=== PATIENT | female | born 1960 | race Caucasian/White ===

== ENCOUNTER → 2018-05-03 14:16 | Outpatient (CLI) | payer BC, SELFPAY ==
[2018-05-14 09:04] LABS: HPV HC, High Risk Negative (Negative)
[2018-05-14 09:19] LABS: HPV Reflexed? YES, CHARGE PATIENT
== END ==
PROVIDERS: Visit Provider Obstetrics & Gynecology
DX: Z12.4 Encounter for screening for malignant neoplasm of cervix (principal)
CPT/HCPCS: 87624; 88175; G0145

== ENCOUNTER 2021-06-28 13:29 | Emergency (ER) | payer OTHER, SELFPAY ==
[2021-06-28 13:29] VITALS: BP 168/119; PULSE 128; RESP 24; TEMP 38.2; O2SAT 94; BMI 26.3
--- NOTE | 2021-06-28 13:31 | RAD_ITS ---
STUDY: X-RAY CHEST REASON FOR EXAM: Female, 61 years old. FEVER / COUGH TECHNIQUE: Frontal view of the chest COMPARISON: None. FINDINGS: The lungs are clear and expanded. There is no demonstrated pleural abnormality. Normal size heart. Normal mediastinum and filippo. Normal visualized pulmonary arteries. Normal visualized aortic arch and descending thoracic aorta. Normal visualized thoracic spine. Normal visualized ribs, clavicles, and shoulders. There is no demonstrated abnormality of the visualized soft tissue structures of the upper abdomen. RAD/Chest 1 View IMPRESSION: Normal x-ray examination of the chest. Electronically Signed: Michael Villa MD at 14:38 EDT Tel , Service support ,
[2021-06-28 16:25] VITALS: O2SAT 96
[2021-06-28] MEDS: Acetaminophen 325 MG Tablet 650 MG PO (16:25)
[2021-06-28 16:31] VITALS: BP 177/98; PULSE 110; RESP 18; TEMP 39.1; O2SAT 96
[2021-06-28 16:40] LABS: Absolute Lymphocyte Count 0.51 X10^3/uL (0.83-4.51); Hematocrit 42.1 % (37-47); Hemoglobin 14.4 g/dL (12.0-15.0); Lymphocyte # 0.51 X10^3/ul (0.83-4.51); Lymphocyte % 19.8 % (19-41); Mean Corp Hgb Conc 34.2 g/dL (32-36); Mean Corpuscular Hgb 34.4 pg (27.0-32.0); Mean Corpuscular Volume 100.7 fL (81-99); Mean Platelet Vol. 9.3 fl (6.2-12.0); Monocyte# 0.11 X10^3/uL; Monocyte% 4.3 % (0-10); NRBC Flagged by Analyzer 0 % (0-5); Neutrophil # 1.96 X10^3/uL (2.7-7.7); Neutrophil % 75.9 % (47-70); POSITIVE DIFFERENTIAL YES; Platelet Count 103 K/mm3 (150-450); RBC Distribution Width CV 12.8 % (11.6-14.6); RBC Distribution Width SD 47.9 fl (35.1-43.9); Red Blood Count 4.18 M/mm3 (4.2-5.4); White Blood Count 2.6 K/mm3 (4.4-11.0)
[2021-06-28 16:41] LABS: Differential Indicated SCAN CRITERIA MET
[2021-06-28 16:54] LABS: ALB/GLOB Ratio 0.9 RATIO (0.9-2.4); AST(SGOT) 17 U/L (15-37); Alanine Aminotransfer ALT/SGPT 21 U/L (13-56); Albumin, Serum 3.5 g/dL (3.2-5.0); Alkaline Phosphatase 75 U/L (45-117); Anion Gap 8 (5-15); BUN 10 mg/dL (7-18); BUN/Creat Ratio 11.7 RATIO (10-20); Calcium,Total 8.7 mg/dL (8.5-10.1); Chloride 99 mmol/L (98-107); Creatinine, Serum 0.85 mg/dL (0.55-1.02); EST Glomerular Filtration Rate 72 mL/min (>60); Est Glom Filt Rate - Afr Amer 87 mL/min (>60); Estimated Creatinine Clearance 65.89 ml/min; Globulin 3.9 g/dL (2.2-4.2); Glucose 113 mg/dL (74-106); Potassium 3.7 mmol/L (3.5-5.1); Protein, Total 7.4 g/dL (6.4-8.2); Sodium Level 134 mmol/L (136-145)
[2021-06-28 17:02] LABS: Differential Comment SCANNED
[2021-06-28 17:15] LABS: Lactic Acid 0.9 mmol/L (0.4-1.9)
--- NOTE | 2021-06-28 18:06 | EX.ED.DYSGE1 ---
HPI History of Present Illness Chief Complaint: Fever Detail of Chief Complaint: Fever, aches, viral-like symptoms Informant: patient Onset/Context/Timing Onset: Days Context: Sudden Onset Timing: Continuous Quality: T-max of 103.0 ?F Current Severity: Mild Maximum Severity: Moderate Worsened by: Dyspnea on exertion Relieved by: Nothing Associated Symptoms Associated Symptoms: Fever, nonproductive cough, nausea Narrative Narrative: Patient is a 61-year-old woman who presents with viral-like symptoms. She was exposed to someone with Covid. She complains of headache, mild photophobia denies neck pain or neck stiffness. Does report nasal congestion, rhinorrhea. Denies sore throat. Denies loss of taste or smell. She has a nonproductive cough. She complains of dyspnea. She denies leg pain, swelling discoloration. Denies history of PE or DVT. She has no risk factors other than Covid. She denies dysuria, frequency, urgency or hematuria. She had intermittent rash on her right and left anterior thigh. Prior similar symptoms: No Recent Illness/Hospitalization: No PFSH PFS Medical History Hairy cell leukemia Home Medications zolpidem [Ambien] 5 mg PO QHS PRN 3 Days #3 tab 06/28/21 [Rx Last Taken Unknown] Allergy/AdvReac Type Severity Reaction Status Date / Time No Known Allergies Allergy Verified 06/28/21 13:31 Social History (Updated 06/28/21 @ 18:[address] Roshan Beltran MD) household members: none Smoking Status: Never smoker alcohol intake: current alcohol intake frequency: other substance use type: does not use ROS ROS ED Constitutional Constitutional ED: Reports chills, fever(s) and sweats; Denies subjective or weight loss Eyes Eyes: Reports other Details: Photophobia ; Denies blurry vision, change in vision or diplopia ENT ENT ED: Reports rhinorrhea; Denies ear pain or sore throat Cardiovascular Cardiovascular: Denies chest pain or palpitations Respiratory/Chest Respiratory/Chest: Reports cough and dyspnea; Denies sputum Gastrointestinal Gastrointestinal: Reports nausea; Denies abdominal pain, constipation, diarrhea or vomiting Genitourinary Genitourinary ED: Denies dysuria, hematuria or urinary frequency Musculoskeletal Musculoskeletal: Reports arthralgias and myalgias; Denies back pain or neck pain Integumentary Reports rash; Denies Abrasions Neurologic Neurologic: Reports headache(s); Denies paresthesias or weakness Endocrine Endocrinology: Denies polydipsia, polyphagia or polyuria Allergic/Immunologic Allergic/Immunologic ED: Denies urticaria EXAM Physical Exam Const Vital Signs: 06/28/21 13:29 06/28/21 16:25 06/28/21 16:31 Temperature 100.7 F H 102.3 F H Temperature Source Oral Temporal Pulse Rate 128 H 110 H Respiratory Rate 24 H 18 Respiratory Effort Respiratory Pattern Blood Pressure 168/119 H 177/98 H Blood Pressure Mean 135 124 Pulse Ox 94 96 96 Oxygen Delivery Method Room Air Room Air Room Air 06/28/21 16:36 Temperature Temperature Source Pulse Rate Respiratory Rate Respiratory Effort Normal Non-Labored Respiratory Pattern Normal Blood Pressure Blood Pressure Mean Pulse Ox Oxygen Delivery Method Positive well nourished and well developed General Appearance ED: well developed and NAD; Negative for cyanotic or diaphoretic HEENT Reports TM's clear and dry mucous membranes HEENT Narrative: Head is atraumatic normocephalic. Nares patent. Posterior pharynx out erythema or exudate. Tympanic Membrane ED: Yes TM's clear Mouth ED: Yes dry mucous membranes Mouth: dry mucous membranes Eyes PERRL and EOMs intact bilaterally General Eye ED: Negative for pale conjunctiva or scleral icterus Neck no lymphadenopathy, supple and no JVD General: Negative for tenderness Chest Wall inspection of chest normal Resp normal respiratory effort and clear to auscultation bilaterally Cardio regular rhythm, S1 normal heart sound, S2 normal heart sound and no murmurs Rate: tachycardic GI normal to inspection, nondistended, normoactive bowel sounds, non-tender and non-distended Palpation: soft Back/Spine no CVA tenderness Cervical Spine: Negative for cervical spine tenderness Thoracic Spine / Upper Back: Negative for paraspinal muscle tenderness Extremity normal to inspection General Extremety ED: Negative for edema or tenderness General Extremity: Negative for edema Neuro oriented x3, CN's II-XII intact bilaterally and no sensory deficits noted Sensorium / Orientation: alert Motor Exam: strength 5/5 throughout Psych mental status grossly normal Skin no rashes or lesions noted, no wounds and skin turgor normal MDM MDM MDM Narrative Medical decision making narrative: Patient with persistent fever. Symptoms are consistent with Covid. Chest x-ray, appropriate blood work and Covid test was obtained. This represents a viral illness versus Covid versus bacterial pneumonia. Patient is neutropenic consistent with Covid. Covid test is positive. Comprehensive metabolic panel is marked for slight elevation of glucose, 113. Lactate normal. Chest x-ray normal. Patient did receive IV fluids. Lab Data Labs: Laboratory Results - last 24 hr 06/28/21 06/28/21 06/28/21 16:31 16:31 16:31 WBC 2.6 L RBC 4.18 L Hgb 14.4 Hct 42.1 MCV 100.7 H MCH 34.4 H MCHC 34.2 RDW Std Deviation 47.9 H RDW Coeff of [place] 12.8 Plt Count 103 L MPV 9.3 Immature Gran % (Auto) 0.000 Neut % (Auto) 75.9 H Lymph % (Auto) 19.8 [place] % (Auto) 4.3 Eos % (Auto) 0.0 Baso % (Auto) 0.0 Absolute Neuts (auto) 2.0 Absolute Lymphs (auto) 0.51 L Nucleated RBC % 0 Differential Comment SCANNED Diff Path Review May foll Sodium 134 L Potassium 3.7 Chloride 99 Carbon Dioxide 27.0 Anion Gap 8 BUN 10 Creatinine 0.85 Estim Creat Clear Calc 65.89 Est GFR (MDRD) Af Amer 87 Est GFR (MDRD) Non-Af 72 BUN/Creatinine Ratio 11.7 Glucose 113 H Lactic Acid 0.9 Calcium 8.7 Total Bilirubin 0.90 AST 17 ALT 21 Alkaline Phosphatase 75 Total Protein 7.4 Albumin 3.5 Globulin 3.9 Albumin/Globulin Ratio 0.9 Radiography Chest X-Ray - ED: 1 View, Read by ED Physician, Unchanged, Normal, Heart, Mediastinum, Bony Structures, No Acute Disease and Chronic Changes Diagnostic Testing: Clinical Impression(s) from Imaging Studies Chest X-Ray 06/28/21 13:31 IMPRESSION: Normal x-ray examination of the chest. Electronically Signed: Michael Villa MD at 14:38 EDT Tel , Service support , Discharge Plan Triage Chief Complaint: Fever ED Provider: Roshan Beltran Dx/Rx/DC Orders Clinical Impression: COVID-19 virus infection, Sinus tachycardia, Fever and neutropenia Instructions: Coronavirus Disease 2019 (COVID-19): Caring for Yourself or Others Prescriptions: New zolpidem [Ambien] 5 mg tablet 5 mg PO QHS PRN (Reason: insomnia) 3 Days Qty: 3 RF: 0 Primary Care Provider: Care Physician,No Primary Referrals: John Goodwin MD [STAFF PHYSICIAN] - 10-14 Days if not better Care Physician,No Primary [Primary Care Provider] - Activity Restrictions/Additional Instructions: Take 4 ibuprofen tablets every 8 hours for the next 2 to 3 days for your fever. Disposition Disposition: Home, Self Care
[2021-06-28 18:34] VITALS: BP 147/91; PULSE 72; RESP 20; TEMP 37.2; O2SAT 98
[2021-06-30 13:36] LABS: Pathologist Review Reviewed
== END 2021-06-28 18:49 | disposition home or self-care (01) ==
PROVIDERS: Emergency Provider Emergency Medicine
DX: U07.1 COVID-19 (principal)
CPT/HCPCS: 71045; 80053; 83605; 85025; 87426; 93005; 94760; 99283; A4216

== ENCOUNTER 2021-07-02 17:38 | Emergency (ER) | payer OTHER, SELFPAY ==
[2021-07-02 17:38] VITALS: BP 143/85; PULSE 120; RESP 18; TEMP 39; O2SAT 93; BMI 25.2
--- NOTE | 2021-07-02 17:58 | EDS_ITS ---
HPI History of Present Illness Chief Complaint: Fever Narrative Narrative: 61-year-old female diagnosed with COVID-19 on Wednesday with symptoms since presenting for fevers which do resolve with Tylenol and ibuprofen and then seemed to come back. She is not complaining of chest pain or shortness of breath. She is stating that she is generally weak. She has decreased p.o. intake because she is not hungry. She is able to hold down some food and fluids. She is making urine. Her highest fever at home is been 102. She states that distantly she was treated for hairy cell leukemia but has not followed up for this. When she was diagnosed with COVID-19 she did not qualify for monoclonal antibodies. She did not want these because she is against the science of it. She also states that she would not take remdesivir or any other treatment for COVID-19. She states that she would prefer to be on ivermectin because she has done research on this. Patient does complain of some mild nausea. She has not been vomiting. Patient does report her pulse oximeter has gone from 97-93 at home on room air. PFSH PFSH Medical History Hairy cell leukemia Hypertension Non-smoker Home Medications zolpidem [Ambien] 5 mg PO QHS PRN 3 Days #3 tab 06/28/21 [Rx Last Taken Unknown] zolpidem [Ambien] 5 mg PO QHS PRN 3 Days #3 tab 06/28/21 [Rx Last Taken Unknown] ondansetron 4 mg PO Q8H PRN PRN #14 tab 07/02/21 [Rx Last Taken Unknown] Allergy/AdvReac Type Severity Reaction Status Date / Time No Known Allergies Allergy Verified 07/02/21 17:42 Social History household members: none Smoking Status: Never smoker alcohol intake: current alcohol intake frequency: other substance use type: does not use ROS ROS ED Constitutional Constitutional ED: Reports chills and fever(s); Denies weight loss Eyes Eyes: Denies blurry vision or change in vision ENT ENT ED: Denies rhinorrhea or sore throat Cardiovascular Cardiovascular: Denies chest pain or palpitations Respiratory/Chest Respiratory/Chest: Reports cough; Denies dyspnea or dyspnea on exertion Gastrointestinal Gastrointestinal: Reports nausea; Denies abdominal pain, diarrhea or vomiting Genitourinary Genitourinary ED: Denies dysuria or hematuria Musculoskeletal Musculoskeletal: Reports myalgias; Denies arthralgias, back pain or neck pain Integumentary Denies Abrasions or rash Neurologic Neurologic: Reports headache(s); Denies paresthesias or weakness EXAM Physical Exam Const Vital Signs: 07/02/21 17:38 07/02/21 19:33 07/02/21 19:56 Temperature 102.2 F H 102.3 F H Temperature Source Temporal Oral Pulse Rate 120 H 99 103 H Respiratory Rate 18 23 H 23 H Respiratory Effort Normal Non-Labored Blood Pressure 143/85 H 143/86 H 148/79 H Blood Pressure Mean 104 105 102 Pulse Ox 93 95 93 Oxygen Delivery Method Room Air Room Air Room Air 07/02/21 20:20 Temperature 99.8 F H Temperature Source Oral Pulse Rate 84 Respiratory Rate 22 H Respiratory Effort Blood Pressure 121/74 H Blood Pressure Mean 89 Pulse Ox 94 Oxygen Delivery Method Room Air Positive well nourished General Appearance ED: NAD; Negative for pallor HEENT Reports moist mucous membranes Negative for trauma Eyes PERRL and EOMs intact bilaterally Neck no lymphadenopathy and supple Resp normal respiratory effort and clear to auscultation bilaterally Cardio regular rhythm Rate: tachycardic GI normal to inspection, nondistended, normoactive bowel sounds Neuro oriented x3 and CN's II-XII intact bilaterally Sensorium / Orientation: alert Psych mental status grossly normal Skin General Skin Exam: Negative for jaundice or pallor MDM MDM MDM Narrative Medical decision making narrative: Patient presenting for reevaluation secondary to symptoms of COVID-19. She is ambulatory and does not appear to be dyspneic. Her pulse ox at rest is 93%. She dropped down to 90 when ambulating and therefore does not qualify for home O2. She was given Toradol and Zofran and her fever has broken. Currently her pulse ox is 94% at rest without oxygen. She is still leukopenic and lymphopenic. Her hemoglobin hematocrit are stable. Potassium is slightly low at 3.2. Her creatinine is normal. LFTs are normal. Troponin negative at 5. EKG on my interpretation shows a normal sinus rhythm with a ventricular rate of 95 bpm without sign of ischemic change. Chest x-ray on my interpretation bilateral infiltrates which is new from previous chest x- ray. The radiologist does agree. Urinalysis shows some urine ketones but does not show any evidence of infection. Patient was counseled on all findings. Patient did state that she wanted to be on ivermectin and I counseled her that I do not prescribe ivermectin for Covid. She was offered monoclonal antibodies but states she does not believe in the science. She stated that she wanted to be admitted for observation but refuses to have received any remdesivir. She does not require steroids because she is not hypoxic and she does not require oxygen for the same reason. Patient and her daughter were counseled that if her pulse ox did drop below 88 and she needed reevaluation to return to the emergency room. I will I will prescribe her Zofran so that she can eat without nausea. She is counseled to hydrate well. Patient discharged in stable condition. Impression: 1. COVID-19 pneumonitis 2. Generalized weakness Lab Data Attestation: I reviewed the patient's lab results. Labs: Laboratory Results - last 24 hr 07/02/21 07/02/21 07/02/21 19:05 19:05 19:53 WBC 2.2 L RBC 3.77 L Hgb 12.8 Hct 37.1 MCV 98.4 MCH 34.0 H MCHC 34.5 RDW Std Deviation 45.3 H RDW Coeff of [place] 12.4 Plt Count 109 L MPV 9.0 Immature Gran % (Auto) 0.900 Neut % (Auto) 85.0 H Lymph % (Auto) 13.2 L [place] % (Auto) 0.9 Eos % (Auto) 0.0 Baso % (Auto) 0.0 Absolute Neuts (auto) 1.9 L Absolute Lymphs (auto) 0.29 L Nucleated RBC % 0 Differential Comment Diff Path Review May foll Platelet Estimate SLT DEC RBC Morphology NORM C+C Sodium 132 L Potassium 3.2 L Chloride 96 L Carbon Dioxide 29.0 Anion Gap 7 BUN 11 Creatinine 0.70 Estim Creat Clear Calc 83.11 Est GFR (MDRD) Af Amer 109 Est GFR (MDRD) Non-Af 90 BUN/Creatinine Ratio 15.6 Glucose 115 H Calcium 8.8 Total Bilirubin 0.70 AST 30 ALT 23 Alkaline Phosphatase 67 Troponin I High Sens 5 Total Protein 7.3 Albumin 2.9 L Globulin 4.4 H Albumin/Globulin Ratio 0.7 L Urine Color Yellow Urine Clarity Clear Urine pH 6.5 Ur Specific [place] 1.015 Urine Protein 100 H Urine Glucose (UA) Normal Urine Ketones 150 A* Urine Occult Blood 10 H Urine Nitrite Negative Urine Bilirubin Negative Urine Urobilinogen 4 H Ur Leukocyte Esterase Negative Urine RBC 0-5 SEEN Urine WBC 0-5 SEEN Ur Squamous Epith Cells 0-5 SEEN Urine Bacteria 1+ Urine Mucus 2+ Radiography Diagnostic Testing: Clinical Impression(s) from Imaging Studies Chest X-Ray 07/02/21 18:24 IMPRESSION: Interval development of hazy bilateral airspace disease consistent with pneumonia including atypical or viral pneumonia. at 2004 Reported and signed by: Marcio Shah MD Electronically Signed: Marcio Shah MD at 20:03 EDT Tel , Service support , Discharge Plan Triage Chief Complaint: Fever ED Provider: Danilo Short Dx/Rx/DC Orders Instructions: Coronavirus Disease 2019 (COVID-19): Caring for Yourself or Others Prescriptions: New ondansetron 4 mg tablet,disintegrating 4 mg PO Q8H PRN PRN (Reason: Nausea) Qty: 14 RF: 0 No Action zolpidem [Ambien] 5 mg tablet 5 mg PO QHS PRN (Reason: insomnia) 3 Days Qty: 3 RF: 0 zolpidem [Ambien] 5 mg tablet 5 mg PO QHS PRN (Reason: insomnia) 3 Days Qty: 3 RF: 0 Primary Care Provider: John Goodwin Referrals: John Goodwin MD [Primary Care Provider] - Disposition Disposition: Home, Self Care
--- NOTE | 2021-07-02 18:24 | EKG12_ITS ---
Test Reason : FEVER Blood Pressure : / mmHG Vent. Rate : 095 BPM Atrial Rate : 095 BPM P-R Int : 134 ms QRS Dur : 086 ms QT Int : 350 ms P-R-T Axes : 047 025 031 degrees QTc Int : 439 ms Normal sinus rhythm Normal ECG Confirmed by SANDRA HUNG, CORWIN ([id number]), tape editor CYNDEE OSULLIVAN ([id number]) on 07/04/2021 9:33:22 AM Referred By: DESIRAE Confirmed By:CORWIN FLORES MD
--- NOTE | 2021-07-02 18:24 | RAD_ITS ---
HISTORY: cough EXAMINATION/TECHNIQUE: XR Chest 1 View: Portable upright AP chest x-ray COMPARISON: 06/28/21 FINDINGS: LINES/DEVICES: None. LUNGS: Hazy bilateral peripheral airspace opacities without consolidation or pleural effusion. MEDIASTINUM AND CARDIOVASCULAR STRUCTURES: Cardiac silhouette not enlarged. Central airways and mediastinal contour are unremarkable. BONES AND SOFT TISSUES: No acute bony abnormalities. RAD/Chest 1 View (Portable) IMPRESSION: Interval development of hazy bilateral airspace disease consistent with pneumonia including atypical or viral pneumonia. at 2004 Reported and signed by: Marcio Shah MD Electronically Signed: Marcio Shah MD at 20:03 EDT Tel , Service support ,
[2021-07-02 19:13] LABS: Absolute Lymphocyte Count 0.29 X10^3/uL (0.83-4.51); Absolute Neutrophil Count 1.9 X10^3/uL (2.0-7.7); Hematocrit 37.1 % (37-47); Hemoglobin 12.8 g/dL (12.0-15.0); Lymphocyte # 0.29 X10^3/ul (0.83-4.51); Lymphocyte % 13.2 % (19-41); Mean Corp Hgb Conc 34.5 g/dL (32-36); Mean Corpuscular Volume 98.4 fL (81-99); Monocyte# 0.02 X10^3/uL; Monocyte% 0.9 % (0-10); NRBC Flagged by Analyzer 0 % (0-5); Neutrophil # 1.86 X10^3/uL (2.7-7.7); POSITIVE DIFFERENTIAL YES; POSITIVE MORPHOLOGY YES; Platelet Count 109 K/mm3 (150-450); RBC Distribution Width CV 12.4 % (11.6-14.6); RBC Distribution Width SD 45.3 fl (35.1-43.9); Red Blood Count 3.77 M/mm3 (4.2-5.4); White Blood Count 2.2 K/mm3 (4.4-11.0)
[2021-07-02 19:16] LABS: Differential Indicated SCAN CRITERIA MET
[2021-07-02] MEDS: Ondansetron 4 MG/2 ML Vial IV (19:24)
[2021-07-02] MEDS: Ketorolac 15 MG/ML Vial IV (19:26)
[2021-07-02 19:33] VITALS: BP 143/86; PULSE 99; RESP 23; TEMP 39.1; O2SAT 95
[2021-07-02 19:35] LABS: ALB/GLOB Ratio 0.7 RATIO (0.9-2.4); AST(SGOT) 30 U/L (15-37); Alanine Aminotransfer ALT/SGPT 23 U/L (13-56); Albumin, Serum 2.9 g/dL (3.2-5.0); Alkaline Phosphatase 67 U/L (45-117); Anion Gap 7 (5-15); BUN 11 mg/dL (7-18); BUN/Creat Ratio 15.6 RATIO (10-20); Calcium,Total 8.8 mg/dL (8.5-10.1); Chloride 96 mmol/L (98-107); EST Glomerular Filtration Rate 90 mL/min (>60); Est Glom Filt Rate - Afr Amer 109 mL/min (>60); Estimated Creatinine Clearance 83.11 ml/min; Globulin 4.4 g/dL (2.2-4.2); Glucose 115 mg/dL (74-106); Potassium 3.2 mmol/L (3.5-5.1); Protein, Total 7.3 g/dL (6.4-8.2); Sodium Level 132 mmol/L (136-145); Troponin-I HS 5 pg/mL (3.0-54.0)
[2021-07-02 19:56] VITALS: BP 148/79; PULSE 103; RESP 23; O2SAT 93
[2021-07-02 20:00] LABS: Platelet Estimate SLT DEC (ADEQ); Red Cell Morphology NORM C+C NORMAL (NORM C&C)
--- NOTE | 2021-07-02 20:13 | ED.RN ---
dr hu notified pt triggers sepsis alert
[2021-07-02 20:20] VITALS: BP 121/74; PULSE 84; RESP 22; TEMP 37.7; O2SAT 94
[2021-07-02 21:03] LABS: Color, Urine Yellow (Yellow); Glucose, Dipstick Normal (Normal); Leukocyte Esterase-Dipstick Negative /ul (Negative); Nitrite-Dipstick Negative (Negative); Occult Blood-Urine 10 /ul (Negative); Protein-Dipstick 100 mg/dl (Negative); Specific Gravity, Urine 1.015 (1.002-1.030); Urine Bilirubin Dipstick Negative (Negative); Urine Clarity Clear (Clear); Urine Urobilinogen 4 mg/dl (Normal); Urine pH 6.5 (5.0 - 8.0)
[2021-07-02 21:04] LABS: Ketone-Dipstick 150 mg/dl (Negative)
[2021-07-02 21:05] LABS: Red Blood Cells-Urine 0-5 SEEN /hpf (0-5); Squamous Epithelial Cells - UA 0-5 SEEN /hpf (5-10); White Blood Cells 0-5 SEEN /hpf (0-5)
[2021-07-02 21:06] LABS: Bacteria 1+ /hpf (None Seen); Mucous, Urine 2+ /hpf (<or=2+)
[2021-07-02 22:06] VITALS: BP 121/74; PULSE 71; TEMP -5.5; TEMP 22; O2SAT 94
--- NOTE | 2021-07-02 22:09 | ED.RN ---
THIS NURSE REVIEWED D/C INSTRUCTIONS WITH PT AND DAUGHTER. BOTH VERBALIZED UNDERSTANDING OF INSTRUCTIONS. IV D/C. IV CATHETER INTACT. PT TOLERATED WELL. PT EXPRESSED BEING UPSET WITH DR TYLER. I SPOKE WITH THE PT AND DAUGHTER FOR AN EXTENDED AMOUNT OF TIME. BOTH VERBALIZED UNDERSTANDING OF SUGGESTIONS. PT DENIES FURTHER NEEDS OR QUESTIONS AT THIS TIME. PT AMBULATES FROM ROOM ON OWN WITHOUT ASSISTANCE FROM STAFF
[2021-07-03 13:21] LABS: Pathologist Review Reviewed
== END 2021-07-02 22:19 | disposition home or self-care (01) ==
PROVIDERS: Emergency Provider Student in an Organized Health Care Education/Training Program; PCP Family Medicine
DX: U07.1 COVID-19 (principal); J12.82 Pneumonia due to coronavirus disease 2019
CPT/HCPCS: 36415; 71045; 80053; 81001; 84484; 85025; 87040; 93005; 96374; 96375; 99283; A4216; J2405

== ENCOUNTER 2021-07-07 07:25 | Emergency (ER) | payer OTHER, SELFPAY ==
[2021-07-07 07:25] VITALS: BP 134/84; PULSE 121; RESP 18; TEMP 37.5; O2SAT 88; BMI 25.0
[2021-07-07 07:36] VITALS: O2SAT 87
--- NOTE | 2021-07-07 07:46 | EKG12_ITS ---
Test Reason : GENERAL ILLNESS Blood Pressure : / mmHG Vent. Rate : 095 BPM Atrial Rate : 095 BPM P-R Int : 138 ms QRS Dur : 080 ms QT Int : 352 ms P-R-T Axes : 042 025 041 degrees QTc Int : 442 ms Normal sinus rhythm Normal ECG Confirmed by SANDRA HUNG, CORWIN ([id number]), managing editor CYNDEE OSULLIVAN ([id number]) on 07/09/2021 8:21:48 AM Referred By: JEROME Confirmed By:CORWIN FLORES MD
--- NOTE | 2021-07-07 07:47 | EX.ED.DYSGE1 ---
HPI History of Present Illness Chief Complaint: General Illness Detail of Chief Complaint: Shortness of breath Informant: patient Onset/Context/Timing Onset: Days Context: Gradual Onset Timing: Continuous Current Severity: Mild Maximum Severity: Mild Narrative Narrative: 61-year-old female history of hairy cell leukemia, hypertension and tested positive for Covid 1021. She is unvaccinated. States that she has been seen twice already. Over the last 2 days she has developed shortness of breath. Also this morning when she woke up she believes she is having vaginal bleeding. Patient has not been on Decadron nor has she received monoclonal antibodies and now is outside the window for that. Prior similar symptoms: Yes Recent Illness/Hospitalization: No PFSH PFSH Medical History Hairy cell leukemia Hypertension Non-smoker Home Medications zolpidem [Ambien] 5 mg PO QHS PRN 3 Days #3 tab 06/28/21 [Rx Last Taken Unknown] zolpidem [Ambien] 5 mg PO QHS PRN 3 Days #3 tab 06/28/21 [Rx Last Taken Unknown] ondansetron 4 mg PO Q8H PRN PRN #14 tab 07/02/21 [Rx Last Taken Unknown] dexamethasone [Decadron] 6 mg PO DAILY 10 Days #10 tab 07/07/21 [Rx Last Taken Unknown] Allergy/AdvReac Type Severity Reaction Status Date / Time No Known Allergies Allergy Verified 07/07/21 07:25 Social History household members: none Smoking Status: Never smoker alcohol intake: current alcohol intake frequency: other substance use type: does not use ROS ROS ED ROS Narrative Fever. Shortness of breath. Muscle aches. Review of Systems ROS Unobtainable: Denies due to encephalopathy Constitutional Constitutional ED: Reports fever(s) Eyes Eyes: Denies change in vision ENT ENT ED: Denies ear pain or sore throat Cardiovascular Cardiovascular: Reports chest pain Respiratory/Chest Respiratory/Chest: Reports cough and dyspnea Gastrointestinal Gastrointestinal: Reports nausea and vomiting; Denies abdominal pain Genitourinary Genitourinary ED: Denies dysuria Musculoskeletal Musculoskeletal: Reports myalgias Integumentary Denies rash Neurologic Neurologic: Denies headache(s) Psychiatric Psychiatric: Denies depression Endocrine Endocrinology: Denies polyuria Allergic/Immunologic Allergic/Immunologic ED: Denies urticaria EXAM Physical Exam Narrative Exam Narrative: 61-year-old female vital signs stable except pulse ox is 88% on room air she was placed on oxygen. Heart rate is 121. H EENT exam unremarkable. Neck nontender no JVD. Lungs auscultation bilaterally. Heart tachycardic 120 no murmur. Abdomen soft nondistended normal bowel sounds no peritoneal signs. Patient moving all 4 extremities. Calves are nontender without edema or cords. Neurologically she is awake and alert with no focal motor deficits. Const Vital Signs: 07/07/21 07:25 07/07/21 07:54 07/07/21 10:37 Temperature 99.5 F H Temperature Source Temporal Pulse Rate 121 H 95 Respiratory Rate 18 17 Respiratory Effort Normal Respiratory Pattern Normal Blood Pressure 134/84 H 150/90 H Blood Pressure Mean 100 110 Pulse Ox 88 97 Oxygen Delivery Method Room Air Nasal Cannula Oxygen Flow Rate (L/min) 2 Positive well nourished and well developed; Negative for obese, cachectic, contractures or unkempt General Appearance ED: well developed and NAD; Negative for unkempt, cachectic, contractures, cyanotic, diaphoretic or pallor Nutritional Appearance: Negative for cachectic or obese HEENT Reports moist mucous membranes Negative for trauma or tenderness Eyes PERRL and EOMs intact bilaterally Neck no lymphadenopathy, supple and no JVD General: Negative for tenderness Chest Wall inspection of chest normal and palpation of chest normal Resp normal respiratory effort and clear to auscultation bilaterally Effort and Inspection: Negative for pain with movement Auscultation: Negative for rales, rhonchi or wheezes Cardio regular rhythm, S1 normal heart sound, S2 normal heart sound and no murmurs; Negative for regular rate Rate: tachycardic GI normal to inspection, nondistended, normoactive bowel sounds, non-tender and non-distended Auscultation: normoactive bowel sounds Palpation: soft Narrative: Pelvic exam done female nurse present in the room along with the patient's . External exam unremarkable. Speculum exam small amount of red and dark blood in the vaginal vault. No significant clots. No heavy bleeding. No obvious abnormality seen on visualization. On bimanual exam no obvious mass is. No discharge. Back/Spine no CVA tenderness General Back: Negative for CVA tenderness Cervical Spine: Negative for cervical spine tenderness Extremity normal to inspection General Extremety ED: Negative for edema or tenderness General Extremity: Negative for edema Neuro oriented x3 and CN's II-XII intact bilaterally Sensorium / Orientation: alert; Negative for orientation impaired, lethargic or stuporous Motor Exam: strength 5/5 throughout Psych mental status grossly normal Appearance: Negative for unkempt Mood & Affect: Negative for depressed or tearful Skin no rashes or lesions noted, no wounds and No skin turgor normal General Skin Exam: Negative for elasticity normal, jaundice or pallor MDM MDM MDM Narrative Medical decision making narrative: 61-year-old female Covid positive now hypoxic. That will be worked up. She is also having vaginal bleeding. Blood count and pelvic exam will need to be obtained. Discussed with the patient at length about being admitted for further treatment of her Covid. She does not want any treatment options other than she will do Decadron at home. She is outside the window for monoclonal antibody therapy. She is also now hypoxic and would be a candidate. flume worker setting her up for home O2. She also knows that she is becoming anemic she is lost about 3 units of blood in the last 11 days. She is due to follow-up with her TRANSPLANT REGISTERED NURSE. She will need further evaluation of pelvic ultrasound for the vaginal bleeding. She will be placed on Decadron at home. Home O2 and outpatient follow-up. Lab Data Attestation: I reviewed the patient's lab results. Lab results narrative: CBC shows a white count of 1.7. Hemoglobin 11.5. Platelets 133. Electrolytes sodium 132. Potassium 3.1. Gap is 9. Creatinine 0.5. Lactic acid 1.1. Labs: Laboratory Results - last 24 hr 07/07/21 07/07/21 07/07/21 07:47 07:47 07:47 WBC 1.7 L RBC 3.33 L Hgb 11.5 L Hct 32.8 L MCV 98.5 MCH 34.5 H MCHC 35.1 RDW Std Deviation 45.9 H RDW Coeff of Irving 12.7 Plt Count 133 L MPV 9.6 Immature Gran % (Auto) 0.600 Neut % (Auto) 83.8 H Lymph % (Auto) 13.8 L Pitt % (Auto) 1.2 Eos % (Auto) 0.6 Baso % (Auto) 0.0 Absolute Neuts (auto) 1.4 L Absolute Lymphs (auto) 0.23 L Nucleated RBC % 0 Differential Comment Diff Path Review May foll Platelet Estimate SLT DEC RBC Morphology NORM C+C Sodium 132 L Potassium 3.1 L Chloride 96 L Carbon Dioxide 27.0 Anion Gap 9 BUN 11 Creatinine 0.54 L Estim Creat Clear Calc 107.74 Est GFR (MDRD) Af Amer 148 Est GFR (MDRD) Non-Af 122 BUN/Creatinine Ratio 20.3 H Glucose 116 H Lactic Acid 1.1 Calcium 8.7 Radiography Chest X-Ray - ED: 1 View, Read by ED Physician, Right Infiltrate and Left Infiltrate Diagnostic Testing: Clinical Impression(s) from Imaging Studies Chest X-Ray 07/07/21 08:00 IMPRESSION: Progressive bilateral pulmonary infiltrates as compared to prior study in the preferential peripheral distribution. This is suggestive of Covid pneumonitis. Electronically Signed: Keshav Toro MD at 8:32 EDT , Service support , Chest x-ray portable single view interpreted by myself and radiologist shows bilateral infiltrates consistent with Covid pneumonitis. Discharge Plan Triage Chief Complaint: General Illness ED Provider: Vincent Uribe Dx/Rx/DC Orders Clinical Impression: COVID-19 virus infection, Abnormal vaginal bleeding, Anemia Instructions: Coronavirus Disease 2019 (COVID-19): Overview, ED Dysfunctional Uterine Bleeding Prescriptions: New dexamethasone [Decadron] 6 mg tablet 6 mg PO DAILY 10 Days Qty: 10 RF: 0 No Action zolpidem [Ambien] 5 mg tablet 5 mg PO QHS PRN (Reason: insomnia) 3 Days Qty: 3 RF: 0 zolpidem [Ambien] 5 mg tablet 5 mg PO QHS PRN (Reason: insomnia) 3 Days Qty: 3 RF: 0 ondansetron 4 mg tablet,disintegrating 4 mg PO Q8H PRN PRN (Reason: Nausea) Qty: 14 RF: 0 Primary Care Provider: John Goodwin Referrals: Allison Pulido DO [STAFF PHYSICIAN] - As soon as possible John Goodwin MD [Primary Care Provider] - As soon as possible Activity Restrictions/Additional Instructions: For your Covid pneumonitis should be placed on Decadron which she will take daily. Given a dose here in the ER today. Started tomorrow. Use your home oxygen. Return if feeling a lot worse or if your oxygen is running continuously below 88% in spite of being on home oxygen you are feeling worse. Plenty of fluids and rest. Follow-up with your doctor to ensure your Covid is improving. Call and follow-up with your TRANSPLANT REGISTERED NURSE. You are having abnormal vaginal bleeding. You have lost 3 units of blood in the last 2 weeks. You will need is further evaluated with a pelvic ultrasound and also TOP LIFT TRIMMER evaluation to determine what they can do to either stop the bleeding or if they will need to do some type of pelvic surgery. Return if bleeding is much heavier you are feeling worse. Disposition Disposition: Home, Self Care
[2021-07-07 07:55] LABS: Absolute Lymphocyte Count 0.23 X10^3/uL (0.83-4.51); Absolute Neutrophil Count 1.4 X10^3/uL (2.0-7.7); Eosinophil# 0.01 X10^3/uL; Eosinophils% 0.6 % (0-5); Hematocrit 32.8 % (37-47); Hemoglobin 11.5 g/dL (12.0-15.0); Lymphocyte # 0.23 X10^3/ul (0.83-4.51); Lymphocyte % 13.8 % (19-41); Mean Corp Hgb Conc 35.1 g/dL (32-36); Mean Corpuscular Hgb 34.5 pg (27.0-32.0); Mean Corpuscular Volume 98.5 fL (81-99); Mean Platelet Vol. 9.6 fl (6.2-12.0); Monocyte# 0.02 X10^3/uL; Monocyte% 1.2 % (0-10); NRBC Flagged by Analyzer 0 % (0-5); Neutrophil % 83.8 % (47-70); POSITIVE DIFFERENTIAL YES; POSITIVE MORPHOLOGY YES; Platelet Count 133 K/mm3 (150-450); RBC Distribution Width CV 12.7 % (11.6-14.6); RBC Distribution Width SD 45.9 fl (35.1-43.9); Red Blood Count 3.33 M/mm3 (4.2-5.4); White Blood Count 1.7 K/mm3 (4.4-11.0)
--- NOTE | 2021-07-07 08:00 | RAD_ITS ---
STUDY: X-RAY CHEST REASON FOR EXAM: Female, 61 years old. Covid positive. Low oxygenation. TECHNIQUE: Single AP portable view of the chest. COMPARISON: Comparison is made with prior study dated 07/02/2021. FINDINGS: EKG electrodes are seen. Since prior study, there has been progressive bilateral pulmonary infiltrates involving both lungs in a preferential peripheral distribution suggestive of progressive pneumonitis secondary to Covid .There is no demonstrated pleural abnormality. Normal size heart. Normal mediastinum and filippo. Normal visualized pulmonary arteries. Normal visualized aortic arch and descending thoracic aorta. Normal visualized thoracic spine. Normal visualized ribs, clavicles, and shoulders. There is no demonstrated abnormality of the visualized soft tissue structures of the upper abdomen. RAD/Chest 1 View (Portable) IMPRESSION: Progressive bilateral pulmonary infiltrates as compared to prior study in the preferential peripheral distribution. This is suggestive of Covid pneumonitis. Electronically Signed: Keshav Toro MD at 8:32 EDT , Service support ,
[2021-07-07] MEDS: 0.9% Normal Saline 1,000 ML 999 ML IV (08:01)
[2021-07-07] MEDS: dexAMETHasone 10 MG/ML Vial IV (08:01)
[2021-07-07 08:08] LABS: Differential Indicated SCAN CRITERIA MET
[2021-07-07 08:19] LABS: Anion Gap 9 (5-15); BUN 11 mg/dL (7-18); BUN/Creat Ratio 20.3 RATIO (10-20); Calcium,Total 8.7 mg/dL (8.5-10.1); Chloride 96 mmol/L (98-107); Creatinine, Serum 0.54 mg/dL (0.55-1.02); EST Glomerular Filtration Rate 122 mL/min (>60); Est Glom Filt Rate - Afr Amer 148 mL/min (>60); Estimated Creatinine Clearance 107.74 ml/min; Glucose 116 mg/dL (74-106); Potassium 3.1 mmol/L (3.5-5.1); Sodium Level 132 mmol/L (136-145)
[2021-07-07 08:24] LABS: Lactic Acid 1.1 mmol/L (0.4-1.9)
[2021-07-07 08:33] LABS: Platelet Estimate SLT DEC (ADEQ)
[2021-07-07 08:34] LABS: Red Cell Morphology NORM C+C NORMAL (NORM C&C)
[2021-07-07 10:37] VITALS: BP 150/90; PULSE 95; RESP 17; O2SAT 97
[2021-07-07 13:38] LABS: Pathologist Review Reviewed
--- NOTE | 2021-07-07 14:20 | CM.ED ---
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 RICARDO called customer service and spoke to Cathy, who stated that when they get the escript and information they will call health underwriter back to advise of the receipt and as a courtesy. RICARDO faxed referral to [facility]. RICARDO called Anjana at [facility] and voice mail answered but this health underwriter did not leave message as previously left message. RICARDO called [facility] [phone] and spoke to [facility] staff, Vera, who stated that they had not received the referral yet. RICARDO refaxed the referral again to [facility] (and of note this health underwriter has had 2 confirmation receipts for referral to [facility]). [facility] ED discharge with Oxygen. (RICARDO also had spoken to Ariana JAMES who indicated patient is not on Cpap or Bipap). Plan: Home Oxygen 2 L Jennifer MARTIN
[2021-07-07 14:54] VITALS: BP 124/78; PULSE 74; RESP 16; O2SAT 99
--- NOTE | 2021-07-07 14:57 | CM.ED ---
RICARDO Note RICARDO called [facility] in [place] and advise by Sunil that she had just sent the page to the [facility] tech for patient. RICARDO also requested more oxygen tanks for the ED. Jennifer MARTIN
--- NOTE | 2021-07-09 16:10 | CASEMGMT ---
ERIKA [facility]AD[facility]A ED Home O2 Follow-up: This RN CM phoned pt on listed phone number. Pt's answered the phone and reports pt to be improving. Pt's expressed concerns regarding previous ED visits and the plan of care prior to being initiated on a steroid and requiring home O2. When asked further about the pt's current condition, pt's reported pt to be wearing O2 at 2l/min and her PO to be 95% on the O2. Attempts to elicit further information were unsuccessful as pt's continued to express concerns regarding pt's previous care. Pt's receptive to speaking with patient advocate to which he was forwarded and provided the number. Uriel Delgado RN CM
--- NOTE | 2021-07-11 17:40 | CASEMGMT ---
[facility] ED COVID Follow-up: This RN RANDY attempted to contact pt for follow-up. No answer was received and message states pt's VM box has not been set-up. Uriel Delgado RN CM
--- NOTE | 2021-07-14 11:22 | CASEMGMT ---
[facility] ED COVID Home O2 Follow-up: This ERIKA PADILLA attempted to contact pt via phone for follow-up on pt's listed cell phone number. No answer was received and message stated VM had not been set-up. This RN RANDY contacted pt's on his listed cell number. Pt's reports pt to be improving but states that she now has a headache since Wednesday. States he has contacted their PCP for further discussion on cause and plan of care to address. Pt's states pt's breathing has improved, pt is not wearing O2 and reports PO to be 95-96% on RA. Reports pt's appetite to be improving. Pt's denies any further questions or concerns at this time. Uriel Delgado RN CM
== END 2021-07-07 14:57 | disposition home or self-care (01) ==
PROVIDERS: Emergency Provider Emergency Medicine; PCP Family Medicine
DX: U07.1 COVID-19 (principal); J12.82 Pneumonia due to coronavirus disease 2019; R09.02 Hypoxemia; N93.9 Abnormal uterine and vaginal bleeding, unspecified; D64.9 Anemia, unspecified
CPT/HCPCS: 71045; 80048; 83605; 85025; 93005; 96361; 96374; 99284; J7030; A4216

== ENCOUNTER → 2021-08-05 10:03 | Outpatient (CLI) | payer OTHER, SELFPAY ==
[2021-08-05 12:17] LABS: Absolute Lymphocyte Count 0.71 X10^3/uL (0.83-4.51); Eosinophil# 0.05 X10^3/uL; Eosinophils% 2.6 % (0-5); Hematocrit 37.3 % (37-47); Hemoglobin 12.4 g/dL (12.0-15.0); Lymphocyte # 0.71 X10^3/ul (0.83-4.51); Lymphocyte % 37.6 % (19-41); Mean Corp Hgb Conc 33.2 g/dL (32-36); Mean Corpuscular Volume 102.2 fL (81-99); Mean Platelet Vol. 9.9 fl (6.2-12.0); Monocyte% 5.3 % (0-10); NRBC Flagged by Analyzer 0 % (0-5); Neutrophil # 1.02 X10^3/uL (2.7-7.7); Platelet Count 102 K/mm3 (150-450); RBC Distribution Width CV 15.5 % (11.6-14.6); RBC Distribution Width SD 57.3 fl (35.1-43.9); Red Blood Count 3.65 M/mm3 (4.2-5.4); White Blood Count 1.9 K/mm3 (4.4-11.0)
[2021-08-05 12:48] LABS: Vitamin D,25 Hydroxy 48.3 ng/mL
[2021-08-05 12:53] LABS: Anion Gap 7 (5-15); BUN 10 mg/dL (7-18); BUN/Creat Ratio 14.2 RATIO (10-20); Calcium,Total 9.7 mg/dL (8.5-10.1); Chloride 105 mmol/L (98-107); Cholesterol 129 mg/dL (200); EST Glomerular Filtration Rate 90 mL/min (>60); Est Glom Filt Rate - Afr Amer 109 mL/min (>60); Glucose 99 mg/dL (74-106); High Density Lipoprotein 41 mg/dL; Sodium Level 138 mmol/L (136-145); Thyroid Stim Hormone (TSH) 0.98 uIU/mL (0.358-3.74); Triglycerides 93 mg/dL; Very Low Density Lipoprotein 19 mg/dL (5-40)
== END ==
PROVIDERS: PCP Family Medicine; Referring Provider Family Medicine; Visit Provider Family Medicine
DX: Z00.00 Encounter for general adult medical examination without abnormal findings (principal); I10 Essential (primary) hypertension; C91.41 Hairy cell leukemia, in remission
CPT/HCPCS: 36415; 80048; 80061; 82306; 84443; 85025

== ENCOUNTER → 2021-08-06 13:05 | Outpatient (CLI) | payer OTHER, SELFPAY ==
--- NOTE | 2021-08-06 13:10 | CT_ITS ---
STUDY: CT BRAIN WITHOUT CONTRAST REASON FOR EXAM: Female, 61 years old. HEADACHE/SUDDEN, SEVERE. Patient has a history of hairy cell leukemia. RADIATION DOSAGE (If Supplied By Facility): CTDIvol = ( 44.99 ) mGy, DLP = ( 796.11 ) mGycm TECHNIQUE: Transaxial CT imaging of the brain was performed without administration of intravenous contrast material. Individualized dose optimization techniques were used for this CT. COMPARISON: No relevant priors. FINDINGS: Normal soft tissue structures. Normal calvarium. Normal size ventricles and extra-axial spaces for the patient''s age. There is evidence of edema involving the naik-white matter junction in the posterior left parietal occipital lobes. A repeat examination following IV contrast or MRI is recommended. Normal basal ganglia and thalami. Normal brainstem. Normal cerebellum. There is no intracranial hemorrhage. There are no findings of an acute ischemic infarction. Normal visualized paranasal sinuses. CT/Brain/Head without Contrast IMPRESSION: Edematous changes seen in the posterior left parietal occipital lobe with evidence of mild mass effect. A repeat examination following IV contrast or MRI is recommended. A neoplastic process should be ruled out. Electronically Signed: Keshav Toro MD at 14:07 EST , Service support ,
== END ==
PROVIDERS: PCP Family Medicine; Referring Provider Family Medicine; Visit Provider Family Medicine
DX: R51.9 Headache, unspecified (principal)
CPT/HCPCS: 70450

== ENCOUNTER → 2021-08-07 11:55 | Outpatient (CLI) | payer OTHER, SELFPAY ==
--- NOTE | 2021-08-07 12:01 | MRI_ITS ---
STUDY: MRI BRAIN WITH AND WITHOUT CONTRAST REASON FOR EXAM: Female, 61 years old. CVA, pt states headaches since 07/11/21, f/u to ct brain TECHNIQUE: Standardized multiplanar fat and water weighted pulse sequences were obtained. 14ml IV Dotarem was administered for the contrast portion of the examination. COMPARISON: CT of the brain 08/06/2021 FINDINGS: Normal size of the ventricles and extra-axial spaces for the patient''s age. Normal white matter tracts of the supratentorial brain. There is a large masslike density in the left posterior temporal lobe and frontal parietal regions demonstrating diffuse restricted diffusion and increased signal intensity on T1 which may be consistent with subacute hemorrhage, or melanin in association with hemosiderin ring deposition measuring approximately 5.9 x 2 x 2.5 cm with rim enhancement following contrast administration. There is associated edematous changes with effacement of the cortical sulci. There is mild mass effect upon the posterior horn of left lateral ventricle. Normal bilateral basal ganglia. Normal thalami. There is no extra-axial fluid accumulation. Normal flow voids within the major intracranial circulation suggesting patency by spin echo criteria. Normal venous enhancement. There is no enhancing intra-axial or extra-axial abnormality. Normal sella turcica, pituitary gland, infundibular stalk, optic chiasm and hypothalamus. Normal tectal plate and pineal gland. Normal midbrain, frederick and medulla. Normal cerebellum. Normal basal cisterns. Normal bilateral temporal bones. Normal bilateral internal auditory canals. No demonstrated orbital abnormality, within the constraints of a routine brain study. Mucosal thickening within the sphenoid sinus. Normal calvarium and skull base. Normal visualized soft tissue structures. Normal visualized upper cervical spine. MRI/Brain W/WO Contrast IMPRESSION: Subacute hemorrhagic mass like density in the left posterior temporal lobe and frontal parietal region with mild rim enhancement and edema effacing cortical sulci. Etiology includes subacute hemorrhagic infarct versus subacute hemorrhagic or melanotic neoplasm which appears less likely due to relative lack of vasogenic type edema and less significant mass effect than would be expected of neoplasm as well as vascular distribution of the lesion. However clinical correlation is recommended as well as follow-up studies to assess for interval changes. Electronically Signed: Gregor Michele MD at 16:29 EST , Service support ,
== END ==
PROVIDERS: PCP Family Medicine; Referring Provider Family Medicine; Visit Provider Family Medicine
DX: D49.6 Neoplasm of unspecified behavior of brain (principal)
CPT/HCPCS: 70553; A9575

== ENCOUNTER 2021-10-17 08:44 | Outpatient (CLI) | payer OTHER, SELFPAY ==
--- NOTE | 2021-10-17 08:48 | CDU_ITS ---
Reason For Study: LEFT CAROTID BRUIT Rt. Velocities/BP Lt. Velocities/BP Prox CCA 129.9/38.2 cm/sec. Prox CCA 110/32.7 cm/sec. Mid CCA 81.2/33.0 cm/sec. Mid CCA 95.3/31.4 cm/sec. Dist CCA 94.3/33.0 cm/sec. Dist CCA 71.9/29.0 cm/sec. Prox ICA 100.2/32.7 cm/sec. Prox ICA 147.4/37.5 cm/sec. Mid ICA 63.4/25.3 cm/sec. Mid ICA 70.5/30.3 cm/sec. Dist ICA 81.8/37.6 cm/sec. Dist ICA 86.9/37.6 cm/sec. Rt. ICA/CCA = 1.1. Lt. ICA/CCA = 1.5. Prox ECA 183.5/43.0 cm/sec. Prox ECA 374.3/95.7 cm/sec. Rt. Vert. 43.7/16.7 cm/sec. Lt. Vert. 48.6/17.5 cm/sec. Right Extracranial There is homogeneous, smooth atherosclerotic plaque noted in the right common carotid artery. There is homogeneous, smooth atherosclerotic plaque noted in the right internal carotid artery. There is homogeneous, smooth atherosclerotic plaque noted in the right external carotid artery. Antegrade flow is noted in the right vertebral artery. Left Extracranial There is homogeneous, smooth atherosclerotic plaque noted in the left common carotid artery. There is heterogeneous, irregular atherosclerotic plaque noted in the left internal carotid artery. There is heterogeneous, irregular atherosclerotic plaque noted in the left external carotid artery. Antegrade flow is noted in the left vertebral artery. Procedure Carotid Duplex 14116. Exam performed in department. VL/Carotid Duplex Ultrasound Interpretation Summary Smooth plaque at the proximal right internal carotid artery with less than 50% stenosis Less than 50% stenosis right external carotid artery Irregular calcific plaque at the proximal left internal carotid artery with 50 to 69% stenosis Greater than 50% stenosis left external carotid artery Patent and antegrade vertebral arteries bilaterally Ordering Physician: Dayton Gonzalez Referring Physician: SYED PEMBERTON Performed By: Mary Jo Gallegos, RENEE, RVT
== END 2021-10-17 23:59 | disposition home or self-care (01) ==
LOC: CVS 08:45
PROVIDERS: PCP Family Medicine; Referring Provider Psychiatry & Neurology Neurology; Visit Provider Psychiatry & Neurology Neurology
DX: R09.89 Other specified symptoms and signs involving the circulatory and respiratory systems (principal); R47.01 Aphasia; Z86.73 Personal history of transient ischemic attack (TIA), and cerebral infarction without residual deficits
CPT/HCPCS: 93880

== ENCOUNTER → 2021-11-05 | Outpatient (CLI) | payer OTHER, SELFPAY ==
[2021-11-05 10:37] LABS: Absolute Lymphocyte Count 0.93 X10^3/uL (0.83-4.51); Absolute Neutrophil Count 0.9 X10^3/uL (2.0-7.7); Basophil# 0.01 X10^3/uL; Basophil% 0.5 % (0-1); Eosinophil# 0.03 X10^3/uL; Eosinophils% 1.5 % (0-5); Hematocrit 43.1 % (37-47); Hemoglobin 14.5 g/dL (12.0-15.0); Lymphocyte # 0.93 X10^3/ul (0.83-4.51); Lymphocyte % 46.5 % (19-41); Mean Corp Hgb Conc 33.6 g/dL (32-36); Mean Corpuscular Hgb 34.4 pg (27.0-32.0); Mean Corpuscular Volume 102.4 fL (81-99); Monocyte# 0.16 X10^3/uL; NRBC Flagged by Analyzer 0 % (0-5); Neutrophil # 0.86 X10^3/uL (2.7-7.7); POSITIVE DIFFERENTIAL YES; Platelet Count 107 K/mm3 (150-450); RBC Distribution Width CV 12.8 % (11.6-14.6); RBC Distribution Width SD 47.5 fl (35.1-43.9); Red Blood Count 4.21 M/mm3 (4.2-5.4)
[2021-11-05 10:42] LABS: Differential Indicated SCAN CRITERIA MET
[2021-11-05 11:13] LABS: Anion Gap 7 (5-15); BUN 14 mg/dL (7-18); BUN/Creat Ratio 19.7 RATIO (10-20); Calcium,Total 9.2 mg/dL (8.5-10.1); Chloride 107 mmol/L (98-107); Cholesterol 137 mg/dL (200); Creatinine, Serum 0.71 mg/dL (0.55-1.02); EST Glomerular Filtration Rate 89 mL/min (>60); Est Glom Filt Rate - Afr Amer 108 mL/min (>60); Glucose 105 mg/dL (74-106); High Density Lipoprotein 55 mg/dL; Potassium 3.7 mmol/L (3.5-5.1); Sodium Level 140 mmol/L (136-145); Thyroid Stim Hormone (TSH) 0.96 uIU/mL (0.358-3.74); Triglycerides 102 mg/dL; Very Low Density Lipoprotein 20 mg/dL (5-40)
== END | disposition home or self-care (01) ==
LOC: MFPLAB 09:38
PROVIDERS: PCP Family Medicine; Referring Provider Family Medicine; Visit Provider Family Medicine
DX: I10 Essential (primary) hypertension (principal); C91.41 Hairy cell leukemia, in remission; R63.5 Abnormal weight gain
CPT/HCPCS: 36415; 80048; 80061; 84443; 85025

== ENCOUNTER → 2022-01-05 | Outpatient (CLI) | payer OTHER, SELFPAY ==
--- NOTE | 2022-01-05 09:54 | US_ITS ---
STUDY: ABDOMINAL ULTRASOUND REASON FOR EXAM: Female, 61 years old. History of leukemia. SPLEEN WITH MEASUREMENT TECHNIQUE: Transabdominal ultrasound was performed with real-time and static naik scale imaging. TECHNICAL QUALITY: Adequate. COMPARISON: None. FINDINGS: Liver: The liver measures 14.3 cm. There is normal echogenicity of the liver. The bile ducts are within normal limits. There is hepatic color flow. The direction of portal flow is hepatopetal. There is no demonstrated mass lesion. Gallbladder: Normal distended gallbladder. The gallbladder wall measures 2.9 mm. There is a negative sonographic Chavez''s sign. There is no pericholecystic fluid. There is a solitary echogenic gallstone within the gallbladder. This measures 4 mm. There is evidence of a 4 mm polyp adherent to the gallbladder wall. Common Bile Duct (C.B.D.): The common bile duct measures 2.8 mm. Pancreas: Normal size of the head, body and tail of the pancreas. There is normal echogenicity of the pancreas. There is no demonstrated pancreatic mass or cyst. Spleen: Normal size of the spleen. The spleen measures 10.4 cm x 4.4 cm x 4.1 cm. Right Kidney: Normal size of the right kidney. The right kidney measures 10.4 cm x 5.1 cm x 4.7 cm. Normal renal cortex. The right cortex measures 1.4 cm. There is no demonstrated renal mass or cyst. There is no right hydronephrosis. Left Kidney: Normal size of the left kidney. The left kidney measures 10.9 cm x 5.8 cm x 4.7 cm. Normal renal cortex. The left cortex measures 1.4 cm. There is no demonstrated renal mass or cyst. There is no left hydronephrosis. Aorta: Unremarkable I.V.C.: The IVC is patent. There is no ascites. US/Abdomen Complete IMPRESSION: 4 mm gallstone in 4 mm polyp adherent to the gallbladder wall. Electronically Signed: Keshav Toro MD at 13:42 EDT ,
== END | disposition home or self-care (01) ==
LOC: US 09:53
PROVIDERS: PCP Family Medicine; Referring Provider Internal Medicine Medical Oncology; Visit Provider Internal Medicine Medical Oncology
DX: C95.90 Leukemia, unspecified not having achieved remission (principal)
CPT/HCPCS: 76700

== ENCOUNTER → 2022-01-29 | Outpatient (CLI) | payer OTHER, SELFPAY ==
--- NOTE | 2022-01-29 09:45 | TELEMED_ITS ---
[facility] has confirmed receipt of a request for visit. This document confirms receipt of the order initiating the consult. To find the results of the consultation, please view the patient's reports for the scanned Telemed Consult.
== END | disposition home or self-care (01) ==
LOC: PSN 08:19
PROVIDERS: PCP Family Medicine; Referring Provider Psychiatry & Neurology Neurology; Visit Provider Psychiatry & Neurology Neurology
DX: G40.909 Epilepsy, unspecified, not intractable, without status epilepticus (principal)
CPT/HCPCS: 95819

== ENCOUNTER → 2022-04-23 | Outpatient (CLI) | payer OTHER, SELFPAY ==
[2022-04-23 10:37] LABS: Anion Gap 3 (5-15); BUN 13 mg/dL (7-18); BUN/Creat Ratio 16.5 RATIO (10-20); Calcium,Total 9.8 mg/dL (8.5-10.1); Chloride 104 mmol/L (98-107); Creatinine, Serum 0.79 mg/dL (0.55-1.02); EST Glomerular Filtration Rate 79 mL/min (>60); Est Glom Filt Rate - Afr Amer 96 mL/min (>60); Glucose 100 mg/dL (74-106); Potassium 3.7 mmol/L (3.5-5.1); Sodium Level 139 mmol/L (136-145)
== END | disposition home or self-care (01) ==
LOC: MFPLAB 08:36
PROVIDERS: PCP Family Medicine; Referring Provider Family Medicine; Visit Provider Family Medicine
DX: I10 Essential (primary) hypertension (principal)
CPT/HCPCS: 36415; 80048

== ENCOUNTER → 2022-08-25 | Outpatient (CLI) | payer OTHER, SELFPAY ==
--- NOTE | 2022-08-25 14:51 | CDU_ITS ---
Reason For Study: Carotid Stenosis Rt. Velocities/BP Lt. Velocities/BP Prox CCA 86.1/30.0 cm/sec. Prox CCA 82.5/28.6 cm/sec. Mid CCA 79.5/32.2 cm/sec. Mid CCA 64.5/24.8 cm/sec. Dist CCA 70.7/32.2 cm/sec. Dist CCA 87.2/38.1 cm/sec. Prox ICA 45.6/22.9 cm/sec. Prox ICA 121.1/35.3 cm/sec. Mid ICA 96.0/37.7 cm/sec. Mid ICA 133.9/38.9 cm/sec. Dist ICA 53.5/21.2 cm/sec. Dist ICA 77.9/36.9 cm/sec. Rt. ICA/CCA = 1.2. Lt. ICA/CCA = 2.1. Prox ECA 148.5/42.2 cm/sec. Prox ECA 319.0/79.6 cm/sec. Rt. Vert. 59.6/22.9 cm/sec. Lt. Vert. 42.1/9.9 cm/sec. Right Extracranial There is intimal thickening but no significant atherosclerotic plaque noted in the right common carotid artery. There is heterogeneous, smooth atherosclerotic plaque noted in the right internal carotid artery. There is intimal thickening but no significant atherosclerotic plaque noted in the right external carotid artery. Antegrade flow is noted in the right vertebral artery. Left Extracranial There is intimal thickening but no significant atherosclerotic plaque noted in the left common carotid artery. There is heterogeneous, irregular atherosclerotic plaque noted in the left internal carotid artery. There is heterogeneous, irregular atherosclerotic plaque noted in the left external carotid artery. Antegrade flow is noted in the left vertebral artery. Procedure Carotid Duplex 90252. This is a Carotid Duplex examination using B-mode, color flow and specral Doppler. The exam was diagnostic. Exam performed in department. VL/Carotid Duplex Ultrasound Interpretation Summary Mild (<50%) stenosis right extracranial internal carotid. Moderate (50-69%) stenosis left extracranial internal carotid. Patent and antegrade vertebrals bilaterally. Ordering Physician: Dayton Gonzalez Referring Physician: Dariel Maya Performed By: Kwame Graham RVT
== END | disposition home or self-care (01) ==
LOC: VL 14:51
PROVIDERS: PCP Family Medicine; Visit Provider Psychiatry & Neurology Neurology
DX: I65.22 Occlusion and stenosis of left carotid artery (principal); R09.89 Other specified symptoms and signs involving the circulatory and respiratory systems
CPT/HCPCS: 93880

== ENCOUNTER → 2022-09-16 | Outpatient (CLI) | payer OTHER, SELFPAY ==
[2022-09-22 14:23] LABS: HPV APTIMA, High Risk Negative (Negative)
== END | disposition home or self-care (01) ==
LOC: LABSPEC 14:59
PROVIDERS: PCP Family Medicine; Referring Provider Nurse Practitioner Women's Health; Visit Provider Nurse Practitioner Women's Health
DX: Z12.4 Encounter for screening for malignant neoplasm of cervix (principal)
CPT/HCPCS: 87624; 88175; G0145

== ENCOUNTER → 2022-10-02 | Outpatient (CLI) | payer OTHER, SELFPAY ==
--- NOTE | 2022-10-02 12:30 | US_ITS ---
STUDY: ULTRASOUND OF THE FEMALE PELVIS - COMPLETE REASON FOR EXAM: Female, 62 years old. PMBPost-Menopausal BleedingUS - Pelvic, Tvag LMP: Patient is postmenopausal. TECHNIQUE: Transabdominal and Transvaginal TECHNICAL QUALITY: Adequate. COMPARISON: None. FINDINGS: The uterus is retroverted and is in a midline position. The uterus measures 8 cm x 4.7 cm x 4.1 cm. There is a Nabothian cyst of the cervix. The endometrium is thickened and measures 6.2 mm in thickness, and is hyperechoic. There is no demonstrated endometrial mass. There is no demonstrated myometrial mass. I.U.D. - The patient does not have an I.U.D. The right ovary is visualized. The right ovary measures 2.4 cm x 1.2 cm x 1.1 cm. There is no right ovarian cyst or ovarian mass. There is no visualized right adnexal mass or complex lesion. There is normal arterial and normal venous vascularity. The left ovary is non-visualized due to overlying bowel gas. There is no fluid in the cul-de-sac. The pre void volume of the bladder was 150 ml. US/Pelvic (Non ) IMPRESSION: Endometrial thickening for the postmenopausal state. Electronically Signed: Keshav Toro MD at 15:35 EST ,
== END | disposition home or self-care (01) ==
LOC: OPUS 12:28
PROVIDERS: PCP Family Medicine; Visit Provider Nurse Practitioner Women's Health
DX: N95.0 Postmenopausal bleeding (principal)
CPT/HCPCS: 76830; 76856

== ENCOUNTER → 2022-10-14 | Outpatient (CLI) | payer OTHER, SELFPAY ==
--- NOTE | 2022-10-14 | EMB_PTH ---
PATIENT: GWEN MANDUJANO LOC: [facility] U#:[id number] AGE/SX: 62/F ROOM: RE10/14/[address]: JAK Hudson : 1960 BED: DIS: 10/14/2022 SPEC #: [id number] RECD: 10/14/22 14:08 STATUS: MARY REDinora #: [id number] CHRISTY: 10/14/22 00:[address]: Haley Hickey NP DEPT: SURGICAL PATHOLOGY RECD BY: Paris Strauss ENTERED: 10/15/22 09:58 SP TYPE: ENDOM BX/C LISA DR: Dr. Dariel Maya MD Tissues: Endometrium, NOS Procedures: Surgery Specimen Level IV HEADER OPERATION: Endometrial biopsy PRE-OP DIAGNOSIS: Postmenopausal bleeding TISSUE SUBMITTED: Endometrial tissue MICROSCOPIC DIAGNOSIS Endometrial biopsy: Superficial fragments of weakly proliferative endometrium, blood and mucous. See comment. KANDI:ani 10/16/2022 COMMENT The specimen predominantly consists of blood and mucous. Clinical correlation and appropriate follow up are necessary. MICROSCOPIC DESCRIPTION Slides are reviewed. GROSS DESCRIPTION Received is one container labeled with the patient's name and not further designated. The specimen consists of multiple fragments of hemorrhagic soft tissue mixed with mucoid tissue that in aggregate measure 2.5 x 1.5 x 0.2 cm. The specimen is totally submitted in one cassette. / SJ:rg 10/15/2022 TC:5 CPT: 78416
== END | disposition home or self-care (01) ==
LOC: LABSPEC 14:19
PROVIDERS: PCP Family Medicine; Referring Provider Nurse Practitioner Women's Health; Visit Provider Nurse Practitioner Women's Health
DX: N95.0 Postmenopausal bleeding (principal)
CPT/HCPCS: 88305

== ENCOUNTER → 2022-11-09 | Outpatient (CLI) | payer OTHER, SELFPAY ==
[2022-11-09 12:46] LABS: Absolute Lymphocyte Count 1.42 X10^3/uL (0.83-4.51); Absolute Neutrophil Count 0.8 X10^3/uL (2.0-7.7); Basophil# 0.01 X10^3/uL; Basophil% 0.4 % (0-1); Eosinophil# 0.02 X10^3/uL; Eosinophils% 0.8 % (0-5); Hematocrit 43.9 % (37-47); Lymphocyte # 1.42 X10^3/ul (0.83-4.51); Lymphocyte % 56.3 % (19-41); Mean Corp Hgb Conc 34.2 g/dL (32-36); Mean Corpuscular Hgb 35.4 pg (27.0-32.0); Mean Corpuscular Volume 103.5 fL (81-99); Mean Platelet Vol. 9.9 fl (6.2-12.0); Monocyte# 0.23 X10^3/uL; Monocyte% 9.1 % (0-10); NRBC Flagged by Analyzer 0 % (0-5); Neutrophil # 0.84 X10^3/uL (2.7-7.7); Neutrophil % 33.4 % (47-70); POSITIVE DIFFERENTIAL YES; POSITIVE MORPHOLOGY YES; Platelet Count 115 K/mm3 (150-450); RBC Distribution Width CV 13.7 % (11.6-14.6); RBC Distribution Width SD 52.6 fl (35.1-43.9); Red Blood Count 4.24 M/mm3 (4.2-5.4); White Blood Count 2.5 K/mm3 (4.4-11.0)
[2022-11-09 12:59] LABS: Differential Indicated SCAN CRITERIA MET
[2022-11-09 14:35] LABS: ALB/GLOB Ratio 1.2 RATIO (0.9-2.4); AST(SGOT) 24 U/L (15-37); Alanine Aminotransfer ALT/SGPT 40 U/L (13-56); Alkaline Phosphatase 103 U/L (45-117); Anion Gap 7 (5-15); BUN 13 mg/dL (7-18); BUN/Creat Ratio 16.1 RATIO (10-20); Calcium,Total 9.8 mg/dL (8.5-10.1); Chloride 104 mmol/L (98-107); Cholesterol 150 mg/dL (200); Creatinine, Serum 0.81 mg/dL (0.55-1.02); EST Glomerular Filtration Rate 77 mL/min (>60); Est Glom Filt Rate - Afr Amer 93 mL/min (>60); Globulin 3.2 g/dL (2.2-4.2); Glucose 107 mg/dL (74-106); High Density Lipoprotein 48 mg/dL; Potassium 3.9 mmol/L (3.5-5.1); Protein, Total 7.2 g/dL (6.4-8.2); Sodium Level 140 mmol/L (136-145); Triglycerides 109 mg/dL; Very Low Density Lipoprotein 22 mg/dL (5-40)
[2022-11-09 15:48] LABS: Differential Comment SCANNED
== END | disposition home or self-care (01) ==
PROVIDERS: PCP Family Medicine; Referring Provider Psychiatry & Neurology Neurology; Visit Provider Psychiatry & Neurology Neurology
DX: C91.42 Hairy cell leukemia, in relapse (principal); I65.22 Occlusion and stenosis of left carotid artery
CPT/HCPCS: 36415; 80053; 80061; 82746; 85025

== ENCOUNTER → 2023-01-15 | Outpatient (CLI) | payer OTHER, SELFPAY ==
[2023-01-15 17:47] LABS: Absolute Lymphocyte Count 1.34 X10^3/uL (0.83-4.51); Absolute Neutrophil Count 0.9 X10^3/uL (2.0-7.7); Eosinophil# 0.02 X10^3/uL; Eosinophils% 0.8 % (0-5); Hematocrit 40.5 % (37-47); Hemoglobin 13.8 g/dL (12.0-15.0); Lymphocyte # 1.34 X10^3/ul (0.83-4.51); Lymphocyte % 55.1 % (19-41); Mean Corp Hgb Conc 34.1 g/dL (32-36); Mean Corpuscular Hgb 35.5 pg (27.0-32.0); Mean Corpuscular Volume 104.1 fL (81-99); Mean Platelet Vol. 10.4 fl (6.2-12.0); Monocyte% 8.2 % (0-10); NRBC Flagged by Analyzer 0 % (0-5); Neutrophil # 0.86 X10^3/uL (2.7-7.7); Neutrophil % 35.5 % (47-70); POSITIVE DIFFERENTIAL YES; Platelet Count 106 K/mm3 (150-450); RBC Distribution Width CV 13.6 % (11.6-14.6); RBC Distribution Width SD 52.2 fl (35.1-43.9); Red Blood Count 3.89 M/mm3 (4.2-5.4); White Blood Count 2.4 K/mm3 (4.4-11.0)
[2023-01-15 18:00] LABS: Differential Indicated SCAN CRITERIA MET
[2023-01-15 18:07] LABS: Anion Gap 7 (5-15); BUN 17 mg/dL (7-18); BUN/Creat Ratio 18.9 RATIO (10-20); Calcium,Total 9.6 mg/dL (8.5-10.1); Chloride 105 mmol/L (98-107); EST Glomerular Filtration Rate 68 mL/min (>60); Est Glom Filt Rate - Afr Amer 82 mL/min (>60); Glucose 107 mg/dL (74-106); Potassium 3.4 mmol/L (3.5-5.1); Sodium Level 141 mmol/L (136-145)
[2023-01-15 18:28] LABS: Differential Comment SCANNED
== END | disposition home or self-care (01) ==
LOC: MFPLAB 15:03
PROVIDERS: PCP Family Medicine; Visit Provider Family Medicine
DX: R07.9 Chest pain, unspecified (principal)
CPT/HCPCS: 36415; 80048; 85025

== ENCOUNTER → 2023-02-02 | Outpatient (CLI) | payer OTHER, SELFPAY ==
--- NOTE | 2023-02-02 09:27 | STRESSREP_ITS ---
Stress Test Report Date: 02/02/2023 Procedure: Exercise tolerance test/imaging study Indications: Chest pain Consent: Per the patient Procedure: The patient exercised on a Nicola protocol for 6 minutes and 41 seconds achieving a peak heart rate of 162 bpm (101% predicted maximal heart rate) with a peak blood pressure 180/84 mmHg and a peak MET capacity of 9.0 METs. The baseline ECG demonstrated normal sinus rhythm. The peak exercise ECG demonstrated no ischemic changes. There were no cardiac dysrhythmias pretest, during exercise, or recovery. The functional capacity was considered adequate. There was no complaint of chest discomfort during exercise or recovery. The examination was discontinued secondary to target heart rate being achieved. The patient was injected with 11.6 mCi of technetium 99m Cardiolite and subsequently rest SPECT Cardiolite nuclear imaging was obtained in the horizontal long, vertical long, and short axis views. Post-exercise, the patient was injected with 35 mCi of technetium 99m Cardiolite and subsequently stress SPECT Cardiolite nuclear imaging was obtained in the horizontal long, vertical long, and short axis views. A gated Cardiolite study at peak stress was obtained. Rest and stress SPECT Cardiolite nuclear imaging status post realignment, normalization, and attenuation correction, demonstrates the appearance of relative uniform tracer uptake and myocardial perfusion appearing within normal limits. There is end systolic thickening and brightening. The gated Cardiolite study demonstrates myocardial thickening and inward wall motion. The reported LVEF is 78%. Impression: 1. Technically adequate (percent predicted maximal heart rate greater than 85%) exercise tolerance test 2. Peak exercise ECG with no ischemic changes 3. There were no cardiac dysrhythmias pretest, during exercise, or recovery 4. Rest and stress SPECT Cardiolite nuclear imaging demonstrate no fixed or r eversible perfusion defect. 5. The gated Cardiolite study reports an LVEF of 78%. This note was generated with [employer] software. It may contain incorrect words, spelling, and punctuation that were not noted in checking the note before signing.
== END | disposition home or self-care (01) ==
LOC: CVS 06:52
PROVIDERS: PCP Family Medicine; Referring Provider Family Medicine; Visit Provider Family Medicine
DX: R07.9 Chest pain, unspecified (principal)
CPT/HCPCS: 78452; 93017; A9500; A4216

== ENCOUNTER → 2023-02-08 | Outpatient (CLI) | payer OTHER, SELFPAY ==
--- NOTE | 2023-02-08 15:10 | RAD_ITS ---
EXAM: XR ABDOMEN, 2 VIEWS AND XR CHEST, 1 VIEW CLINICAL INDICATION: Abdominal pain TECHNIQUE: Frontal view of the chest, frontal view of the abdomen/pelvis and upright or decubitus view of the abdomen. COMPARISON: No relevant prior studies available. FINDINGS: LIMITATIONS: Limited assessment for urolithiasis due to overlying stool and gas. CHEST: LUNGS AND PLEURAL SPACES: Unremarkable. No consolidation or edema. No pneumothorax. No effusion. HEART: Unremarkable. Cardiac silhouette not enlarged. MEDIASTINUM: Central airways and mediastinal contour are unremarkable. ABDOMEN: INTRAPERITONEAL SPACE: No free air. GASTROINTESTINAL TRACT: Stool and gas throughout the colon is compatible with constipation. No bowel obstruction. ORGANS: Unremarkable as visualized. No organomegaly. No abnormal calcifications. TUBES, LINES AND DEVICES: None. BONES/JOINTS: No acute findings. No suspicious lytic or sclerotic lesions of bone. SOFT TISSUES: No acute findings. VASCULATURE: Vascular calcifications the pelvis. RAD/Acute Abdomen Inc Chest IMPRESSION: Stool and gas throughout the colon is compatible with constipation. Electronically Signed: Stevo Chatman MD at 0:58 EDT ,
[2023-02-08 17:48] LABS: Internal QC Validated? YES +Cl - CLEAR BKGD; Monotest Negative (Negative)
[2023-02-08 17:53] LABS: Absolute Lymphocyte Count 0.37 X10^3/uL (0.83-4.51); Absolute Neutrophil Count 1.9 X10^3/uL (2.0-7.7); Basophil# 0.01 X10^3/uL; Basophil% 0.4 % (0-1); Hematocrit 40.3 % (37-47); Hemoglobin 14.3 g/dL (12.0-15.0); Lymphocyte # 0.37 X10^3/ul (0.83-4.51); Lymphocyte % 15.7 % (19-41); Mean Corp Hgb Conc 35.5 g/dL (32-36); Mean Corpuscular Hgb 35.7 pg (27.0-32.0); Mean Corpuscular Volume 100.5 fL (81-99); Monocyte% 4.2 % (0-10); NRBC Flagged by Analyzer 0 % (0-5); Neutrophil # 1.87 X10^3/uL (2.7-7.7); Neutrophil % 79.3 % (47-70); POSITIVE COUNT YES; POSITIVE DIFFERENTIAL YES; POSITIVE MORPHOLOGY YES; Platelet Count 95 K/mm3 (150-450); RBC Distribution Width CV 13.2 % (11.6-14.6); RBC Distribution Width SD 49.7 fl (35.1-43.9); Red Blood Count 4.01 M/mm3 (4.2-5.4); White Blood Count 2.4 K/mm3 (4.4-11.0)
[2023-02-08 18:12] LABS: Differential Indicated SCAN CRITERIA MET; Erythrocyte Sedimentation Rate 34 mm/hr (0-30)
[2023-02-08 18:41] LABS: Atypical Lymphocyte 1+ %; Platelet Estimate MOD DEC (ADEQ); Reactive Lymphocyte 1+
[2023-02-08 18:42] LABS: Anisocytosis 1+; Macrocytosis 1+; Ovalocyte RARE; Platelet Morphology LARGE; Red Cell Morphology N CHROM NORMAL (NORM C&C)
[2023-02-09 13:49] LABS: Pathologist Review Reviewed
== END | disposition home or self-care (01) ==
PROVIDERS: PCP Family Medicine; Referring Provider Family Medicine; Visit Provider Family Medicine
DX: R10.32 Left lower quadrant pain (principal)
CPT/HCPCS: 36415; 74022; 85025; 85652; 86308; 87086; 87088

== ENCOUNTER 2023-02-09 13:19 | Emergency (ER) | payer OTHER, SELFPAY ==
[2023-02-09 13:21] VITALS: BP 120/88; PULSE 101; RESP 16; TEMP 36.9; O2SAT 99; BMI 26.4
--- NOTE | 2023-02-09 14:39 | CT_ITS ---
STUDY: CT ABDOMEN AND PELVIS WITHOUT CONTRAST REASON FOR EXAM: Female, 62 years old. Abdominal pain. Weakness and constipation. RADIATION DOSAGE (If Supplied By Facility): CTDIvol = ( 7.54 ) mGy, DLP = ( 406.66 ) mGycm TECHNIQUE: Transaxial images were obtained from the dome of the diaphragm to the symphysis pubis without oral contrast, and without intravenous contrast. Sagittal and coronal images were reconstructed. Individualized dose optimization techniques were used for this CT. COMPARISON: None. FINDINGS: The visualized lung bases are unremarkable. Coronary artery calcification. Normal liver. Small gallstones are seen along the dependent portion of the gallbladder lumen. Normal spleen. Normal pancreas. Normal bilateral adrenal glands. Normal right kidney. Normal left kidney. There is a small hiatal hernia. Normal small intestine. There are scattered colonic diverticula consistent with diverticulosis. The appendix is visualized and appears normal. There is scattered atherosclerotic calcification of the abdominal aorta, without a demonstrated aneurysm. Normal inferior vena cava. Normal retroperitoneum. Normal urinary bladder. Calcified phleboliths are seen in the pelvis. There is a 1.6 cm x 1.4 cm calcified rounded soft tissue density in the peritoneal fat in the right hemipelvis. This may represent a partially calcified mesenteric lymph node. There is a small umbilical hernia containing fat. Normal osseous structures. CT/Abdomen/Pelvis without Cont IMPRESSION: Findings suggestive of small gallstones along the dependent portion of the gallbladder lumen. Electronically Signed: Keshav Toro MD at 15:22 EDT ,
[2023-02-09] MEDS: 0.9% Normal Saline 1,000 ML 1000 ML IV ×2 (14:59→16:49)
[2023-02-09] MEDS: Ondansetron 4 MG/2 ML Vial IV (14:59)
--- NOTE | 2023-02-09 15:41 | EX.ED.DYSGE1 ---
HPI History of Present Illness Chief Complaint: General Illness Informant: patient, spouse/S.O. and family Onset/Context/Timing Onset: Days (5) Context: Gradual Onset Timing: Continuous Quality: Aching Location: Abdomen and lower back Worsened by: Nothing Relieved by: Nothing Narrative Narrative: Patient presents with body aches, chills, decreased appetite, decreased oral intake that has been getting worse over the past 5 days. Patient states it is gradually getting worse. Patient states it has been constant. Patient describes her pain as aching. Patient states it is diffuse across the abdomen and into lower back. Patient states nothing makes it worse and nothing makes it better. Patient admits to some nausea but denies any vomiting. Patient has had a fever recently of 102.7. Patient admits to some subjective chills. Patient denies any dysuria or hematuria. Patient had recent blood work done by her primary care physician's office. Patient was noted to be pancytopenic on her CBC. Patient had a negative monotest, negative COVID-19 antigen, and negative influenza antigens. Patient did have a urinalysis done at the primary care physician's office yesterday but the results are not back yet. [facility] Medical History Cerebral venous sinus thrombosis CVA (cerebral vascular accident) Hairy cell leukemia History of aphasia Migraine headache Non-smoker Pulmonary thromboembolism Home Medications ondansetron 4 mg disintegrating tablet 4 mg PO Q8H PRN PRN Nausea #14 tabs 07/02/21 [Rx Last Taken Unknown] losartan 50 mg tablet 50 mg PO DAILY 10/06/21 [History Last Taken Unknown] hydrochlorothiazide 25 mg tablet 25 mg PO DAILY 05/14/22 [History Last Taken Unknown] apixaban 5 mg tablet (Eliquis) 5 mg PO BID #60 tabs 11/02/22 [Rx Last Taken Unknown] atorvastatin 80 mg tablet 80 mg PO DAILY #30 tabs 11/02/22 [Rx Last Taken Unknown] folic acid 1 mg tablet 1 mg PO DAILY #30 tabs 11/02/22 [Rx Last Taken Unknown] ondansetron 4 mg disintegrating tablet 4 mg PO Q8H PRN PRN Nausea #10 tabs 02/09/23 [Rx Last Taken Unknown] potassium chloride 10 mEq capsule,extended release 10 meq PO BID #10 caps 02/09/23 [Rx Last Taken Unknown] Allergy/AdvReac Type Severity Reaction Status Date / Time No Known Allergies Allergy Verified 11/02/22 14:08 Family History Mother Hypertension Surgical History No history of previous surgery Social History adopted: No household members: none number of children: 2 current occupational status: unemployed Smoking Status: Never smoker second hand exposure: No alcohol intake: never substance use type: does not use latosha/congregational: Hinduism seatbelt use: sometimes do you feel safe at home: Yes additional social history: - John ROSA [facility] ED Constitutional Constitutional ED: Reports chills and fever(s) Eyes Eyes: Denies blurry vision or change in vision ENT ENT ED: Denies rhinorrhea or sore throat Cardiovascular Cardiovascular: Denies chest pain or palpitations Respiratory/Chest Respiratory/Chest: Denies cough or dyspnea Gastrointestinal Gastrointestinal: Denies nausea or vomiting Genitourinary Genitourinary ED: Denies dysuria or hematuria Musculoskeletal Musculoskeletal: Reports back pain and myalgias; Denies neck pain Integumentary Denies abscess or rash Neurologic Neurologic: Denies headache(s) or weakness Allergic/Immunologic Allergic/Immunologic ED: Denies mouth swelling or urticaria EXAM Physical Exam Const Vital Signs: 02/09/23 13:20 02/09/23 13:21 02/09/23 16:17 Temperature 98.4 F Temperature Source Temporal Pulse Rate 101 H 84 Respiratory Rate 16 16 Respiratory Effort Normal Non-Labored Respiratory Pattern Normal Blood Pressure 120/88 H 130/82 H Blood Pressure Mean 98 98 Pulse Ox 99 98 Oxygen Delivery Method Room Air Room Air Positive well nourished and well developed General Appearance ED: well developed HEENT Reports moist mucous membranes Neck supple and no JVD Resp normal respiratory effort and clear to auscultation bilaterally Cardio regular rate, regular rhythm and no murmurs GI normal to inspection, nondistended, normoactive bowel sounds Palpation: soft and tender epigastric, LLQ, RLQ, LUQ, RUQ, periumbilical and suprapubic; Negative for guarding or rebound tenderness present Extremity normal to inspection General Extremety ED: Negative for edema or tenderness General Extremity: Negative for edema Neuro oriented x3, CN's II-XII intact bilaterally and no sensory deficits noted Sensorium / Orientation: alert Motor Exam: strength 5/5 throughout Psych mental status grossly normal Skin no rashes or lesions noted MDM MDM MDM Narrative Medical decision making narrative: Differential diagnosis includes viral illness, dehydration, acute kidney injury, electrolyte abnormality, gastroenteritis, urinary tract infection, and bowel obstruction. CT scan of the abdomen pelvis will be obtained to assess for bowel obstruction and perforation. Comprehensive metabolic profile will be obtained to assess for renal function, hepatic function, and electrolyte abnormality. Urinalysis will be obtained to assess for urinary tract infection. Lipase will be obtained to assess for pancreatitis. Lab Data Attestation: I reviewed the patient's lab results. Lab results narrative: Comprehensive metabolic profile was reviewed. Potassium was low at 2.6. Total bilirubin was slightly elevated at 1.7. AST was 52 and ALT was 90. Urinalysis was reviewed. There is no evidence of urinary tract infection or hematuria. Lipase was reviewed and was normal. Labs: Laboratory Results - last 24 hr 02/09/23 02/09/23 15:00 16:10 Sodium 133 L Potassium 2.6 L* Chloride 95 L Carbon Dioxide 32.0 Anion Gap 6 BUN 16 Creatinine 0.88 Estim Creat Clear Calc 65.28 Est GFR (MDRD) Af Amer 84 Est GFR (MDRD) Non-Af 70 BUN/Creatinine Ratio 18.2 Glucose 128 H Calcium 9.8 Total Bilirubin 1.70 H AST 52 H ALT 90 H Alkaline Phosphatase 102 Total Protein 7.6 Albumin 3.5 Globulin 4.1 Albumin/Globulin Ratio 0.9 Lipase 33 Urine Color Yellow Urine Clarity Clear Urine pH 7.0 Ur Specific [place] 1.010 Urine Protein Negative Urine Glucose (UA) Normal Urine Ketones Negative Urine Occult Blood Negative Urine Nitrite Negative Urine Bilirubin Negative Urine Urobilinogen Normal Ur Leukocyte Esterase Negative Urine RBC 0 SEEN Urine WBC 0 SEEN Ur Squamous Epith Cells 0 SEEN Urine Bacteria 0 SEEN Urine Mucus 0 SEEN Radiography Diagnostic Testing: Clinical Impression(s) from Imaging Studies Abdomen/Pelvis CT 02/09/23 14:39 IMPRESSION: Findings suggestive of small gallstones along the dependent portion of the gallbladder lumen. Electronically Signed: Keshav Toro MD at 15:22 EDT , CT scan of the abdomen pelvis was obtained. There are small gallstones along the dependent portion of the gallbladder lumen. There is no evidence of bowel obstruction or perforation. There is no acute process noted. This was interpreted by the radiologist and was also independently reviewed by myself. Treatment and Re-Evaluation :: Patient was given IV fluids. Patient was given a dose of Zofran here. Patient was given dose of oral potassium for her hypokalemia. Patient is feeling better on reevaluation. Patient was given prescriptions for Zofran and potassium. Patient was instructed to drink small amounts of liquids more frequently. Patient and family were instructed to follow-up with her primary care physician and oncologist in 5 to 7 days as scheduled. Patient and family understood and were agreeable with the plan. All questions were answered. Discharge Plan Triage Chief Complaint: General Illness ED Provider: Jono Gabriel Dx/Rx/DC Orders Clinical Impression: Mild dehydration, Hypokalemia, Nausea Instructions: ED Dehydration (Adult), ED Hypokalemia Prescriptions: New ondansetron [ondansetron] 4 mg tablet,disintegrating 4 mg PO Q8H PRN PRN (Reason: Nausea) Qty: 10 0RF potassium chloride 10 mEq capsule, extended release 10 meq PO BID Qty: 10 0RF No Action losartan 50 mg tablet 50 mg PO DAILY hydrochlorothiazide 25 mg tablet 25 mg PO DAILY Eliquis 5 mg tablet 5 mg PO BID Qty: 60 6RF folic acid 1 mg tablet 1 mg PO DAILY Qty: 30 6RF atorvastatin 80 mg tablet 80 mg PO DAILY Qty: 30 6RF ondansetron 4 mg tablet,disintegrating 4 mg PO Q8H PRN PRN (Reason: Nausea) Qty: 14 0RF Primary Care Provider: Dariel Maya Referrals: Dariel Maya MD [Primary Care Provider] - 3-5 Days Disposition Disposition: Home, Self Care
[2023-02-09 15:55] LABS: ALB/GLOB Ratio 0.9 RATIO (0.9-2.4); AST(SGOT) 52 U/L (15-37); Alanine Aminotransfer ALT/SGPT 90 U/L (13-56); Albumin, Serum 3.5 g/dL (3.2-5.0); Alkaline Phosphatase 102 U/L (45-117); Anion Gap 6 (5-15); BUN 16 mg/dL (7-18); BUN/Creat Ratio 18.2 RATIO (10-20); Calcium,Total 9.8 mg/dL (8.5-10.1); Chloride 95 mmol/L (98-107); Creatinine, Serum 0.88 mg/dL (0.55-1.02); EST Glomerular Filtration Rate 70 mL/min (>60); Est Glom Filt Rate - Afr Amer 84 mL/min (>60); Estimated Creatinine Clearance 65.28 ml/min; Globulin 4.1 g/dL (2.2-4.2); Glucose 128 mg/dL (74-106); Lipase 33 U/L (13-75); Potassium 2.6 mmol/L (3.5-5.1); Protein, Total 7.6 g/dL (6.4-8.2); Sodium Level 133 mmol/L (136-145)
[2023-02-09 16:17] VITALS: BP 130/82; PULSE 84; RESP 16; O2SAT 98
[2023-02-09] MEDS: Potassium Chloride Oral Tablet 20 MEQ 40 MEQ PO (16:21)
[2023-02-09 16:23] LABS: Bacteria 0 SEEN /hpf (None Seen); Mucous, Urine 0 SEEN /hpf (<or=2+); Red Blood Cells-Urine 0 SEEN /hpf (0-5); Squamous Epithelial Cells - UA 0 SEEN /hpf (5-10); White Blood Cells 0 SEEN /hpf (0-5)
[2023-02-09 16:28] LABS: Color, Urine Yellow (Yellow); Glucose, Dipstick Normal (Normal); Ketone-Dipstick Negative (Negative); Leukocyte Esterase-Dipstick Negative /ul (Negative); Nitrite-Dipstick Negative (Negative); Occult Blood-Urine Negative /ul (Negative); Protein-Dipstick Negative (Negative); Urine Bilirubin Dipstick Negative (Negative); Urine Clarity Clear (Clear); Urine Urobilinogen Normal (Normal)
[2023-02-09 17:07] VITALS: BP 121/76; RESP 18; O2SAT 99
[2023-02-09 17:40] VITALS: BP 104/78; O2SAT 97
--- NOTE | 2023-02-09 17:40 | ED.RN ---
PT'S DAUGHTER CONCERNED ABOUT PT'S BP BEING TOO LOW, 104/78. DAUGHTER THINKS THIS IS DANGEROUS.
== END 2023-02-09 18:09 | disposition home or self-care (01) ==
PROVIDERS: Emergency Provider Emergency Medicine; PCP Family Medicine; Visit Provider Emergency Medicine
DX: E86.0 Dehydration (principal); D61.818 Other pancytopenia; R11.0 Nausea; Z86.73 Personal history of transient ischemic attack (TIA), and cerebral infarction without residual deficits
CPT/HCPCS: 74176; 80053; 81001; 83690; 96361; 96374; 99283; J7030; A4216; J2405

== ENCOUNTER → 2023-02-12 | Outpatient (CLI) | payer OTHER, SELFPAY ==
[2023-02-12 16:36] LABS: Anion Gap 7 (5-15); BUN 13 mg/dL (7-18); BUN/Creat Ratio 19.9 RATIO (10-20); Calcium,Total 9.1 mg/dL (8.5-10.1); Chloride 102 mmol/L (98-107); Creatinine, Serum 0.65 mg/dL (0.55-1.02); EST Glomerular Filtration Rate 98 mL/min (>60); Est Glom Filt Rate - Afr Amer 118 mL/min (>60); Glucose 101 mg/dL (74-106); Potassium 3.5 mmol/L (3.5-5.1); Sodium Level 139 mmol/L (136-145)
== END | disposition home or self-care (01) ==
LOC: MFPLAB 12:21
PROVIDERS: PCP Family Medicine; Visit Provider Family Medicine
DX: E87.6 Hypokalemia (principal)
CPT/HCPCS: 36415; 80048

== ENCOUNTER → 2023-03-24 | Outpatient (CLI) | payer OTHER, SELFPAY ==
[2023-03-24 12:29] LABS: Bacteria 0 SEEN /hpf (None Seen); Mucous, Urine 0 SEEN /hpf (<or=2+); Red Blood Cells-Urine 0 SEEN /hpf (0-5); Squamous Epithelial Cells - UA 0 SEEN /hpf (5-10); White Blood Cells 0 SEEN /hpf (0-5)
[2023-03-24 15:13] LABS: Absolute Lymphocyte Count 0.59 X10^3/uL (0.83-4.51); Absolute Neutrophil Count 1.4 X10^3/uL (2.0-7.7); Eosinophil# 0.02 X10^3/uL; Hematocrit 38.1 % (37-47); Hemoglobin 12.4 g/dL (12.0-15.0); Lymphocyte # 0.59 X10^3/ul (0.83-4.51); Lymphocyte % 28.2 % (19-41); Mean Corp Hgb Conc 32.5 g/dL (32-36); Mean Corpuscular Hgb 34.2 pg (27.0-32.0); Mean Platelet Vol. 10.5 fl (6.2-12.0); Monocyte# 0.06 X10^3/uL; Monocyte% 2.9 % (0-10); NRBC Flagged by Analyzer 0 % (0-5); Neutrophil # 1.41 X10^3/uL (2.7-7.7); Neutrophil % 67.4 % (47-70); POSITIVE DIFFERENTIAL YES; Platelet Count 145 K/mm3 (150-450); RBC Distribution Width CV 14.4 % (11.6-14.6); RBC Distribution Width SD 56.4 fl (35.1-43.9); Red Blood Count 3.63 M/mm3 (4.2-5.4); White Blood Count 2.1 K/mm3 (4.4-11.0)
[2023-03-24 15:26] LABS: Color, Urine Yellow (Yellow); Glucose, Dipstick Normal (Normal); Ketone-Dipstick Negative (Negative); Leukocyte Esterase-Dipstick Negative /ul (Negative); Nitrite-Dipstick Negative (Negative); Occult Blood-Urine Negative /ul (Negative); Protein-Dipstick Negative (Negative); Urine Bilirubin Dipstick Negative (Negative); Urine Clarity Clear (Clear); Urine Urobilinogen Normal (Normal)
[2023-03-24 15:34] LABS: Differential Indicated SCAN CRITERIA MET
[2023-03-24 15:35] LABS: ALB/GLOB Ratio 0.8 RATIO (0.9-2.4); AST(SGOT) 17 U/L (15-37); Alanine Aminotransfer ALT/SGPT 22 U/L (13-56); Albumin, Serum 3.4 g/dL (3.2-5.0); Alkaline Phosphatase 109 U/L (45-117); Anion Gap 6 (5-15); BUN 13 mg/dL (7-18); BUN/Creat Ratio 16.2 RATIO (10-20); Calcium,Total 9.6 mg/dL (8.5-10.1); Chloride 101 mmol/L (98-107); EST Glomerular Filtration Rate 77 mL/min (>60); Est Glom Filt Rate - Afr Amer 93 mL/min (>60); Globulin 4.1 g/dL (2.2-4.2); Glucose 109 mg/dL (74-106); Potassium 3.2 mmol/L (3.5-5.1); Protein, Total 7.5 g/dL (6.4-8.2); Sodium Level 139 mmol/L (136-145)
[2023-03-24 15:55] LABS: Differential Comment SCANNED; Erythrocyte Sedimentation Rate 29 mm/hr (0-30)
[2023-03-26 13:29] LABS: Pathologist Review Reviewed
[2023-03-29 08:12] LABS: Anti-Nuclear Antibody Test Negative (.); Anti-dsDNA Ab 1 IU/mL (0-9)
== END | disposition home or self-care (01) ==
LOC: MFPLAB 12:27
PROVIDERS: PCP Family Medicine; Visit Provider Dermatology
DX: L30.9 Dermatitis, unspecified (principal)
CPT/HCPCS: 36415; 80053; 81001; 85025; 85652; 86038; 86225

== ENCOUNTER → 2023-03-31 | Outpatient (CLI) | payer OTHER, SELFPAY ==
[2023-03-31 13:14] LABS: Vitamin B12 504 pg/mL (211-911)
== END | disposition home or self-care (01) ==
LOC: MFPLAB 11:17
PROVIDERS: PCP Family Medicine; Visit Provider Family Medicine
DX: L50.9 Urticaria, unspecified (principal)
CPT/HCPCS: 36415; 82607

== ENCOUNTER → 2023-04-05 | Outpatient (CLI) | payer OTHER, SELFPAY ==
[2023-04-05 12:26] LABS: Erythrocyte Sedimentation Rate 27 mm/hr (0-30)
[2023-04-05 12:32] LABS: Absolute Lymphocyte Count 0.63 X10^3/uL (0.83-4.51); Absolute Neutrophil Count 1.2 X10^3/uL (2.0-7.7); Basophil# 0.01 X10^3/uL; Basophil% 0.5 % (0-1); Eosinophil# 0.01 X10^3/uL; Eosinophils% 0.5 % (0-5); Hemoglobin 12.6 g/dL (12.0-15.0); Lymphocyte # 0.63 X10^3/ul (0.83-4.51); Lymphocyte % 32.1 % (19-41); Mean Corp Hgb Conc 33.2 g/dL (32-36); Mean Corpuscular Hgb 34.6 pg (27.0-32.0); Mean Corpuscular Volume 104.4 fL (81-99); Mean Platelet Vol. 9.7 fl (6.2-12.0); Monocyte# 0.11 X10^3/uL; Monocyte% 5.6 % (0-10); NRBC Flagged by Analyzer 0 % (0-5); Neutrophil % 61.3 % (47-70); Platelet Count 140 K/mm3 (150-450); RBC Distribution Width CV 15.2 % (11.6-14.6); RBC Distribution Width SD 58.8 fl (35.1-43.9); Red Blood Count 3.64 M/mm3 (4.2-5.4)
[2023-04-05 13:31] LABS: ALB/GLOB Ratio 0.8 RATIO (0.9-2.4); AST(SGOT) 11 U/L (15-37); Alanine Aminotransfer ALT/SGPT 21 U/L (13-56); Alkaline Phosphatase 98 U/L (45-117); Anion Gap 5 (5-15); BUN 13 mg/dL (7-18); BUN/Creat Ratio 16.9 RATIO (10-20); Calcium,Total 9.1 mg/dL (8.5-10.1); Chloride 102 mmol/L (98-107); Creatinine, Serum 0.77 mg/dL (0.55-1.02); EST Glomerular Filtration Rate 81 mL/min (>60); Est Glom Filt Rate - Afr Amer 98 mL/min (>60); Globulin 3.7 g/dL (2.2-4.2); Glucose 115 mg/dL (74-106); Potassium 3.6 mmol/L (3.5-5.1); Protein, Total 6.7 g/dL (6.4-8.2); Sodium Level 135 mmol/L (136-145); Thyroid Stim Hormone (TSH) 2.29 uIU/mL (0.358-3.74)
[2023-04-12 09:07] LABS: Lyme IgG P18 Ab Absent (.); Lyme IgG P23 Ab Absent (.); Lyme IgG P28 Ab Absent (.); Lyme IgG P30 Ab Absent (.); Lyme IgG P39 Ab Present (.); Lyme IgG P41 Ab Present (.); Lyme IgG P45 Ab Absent (.); Lyme IgG P58 Ab Absent (.); Lyme IgG P66 Ab Absent (.); Lyme IgG P93 Ab Absent (.); Lyme IgG WB Interpretation Negative (.); Lyme IgM P23 Ab Present (.); Lyme IgM P39 Ab Present (.); Lyme IgM P41 Ab Present (.); Lyme IgM WB Interpretation Positive (.)
== END | disposition home or self-care (01) ==
LOC: MFPLAB 10:57
PROVIDERS: PCP Family Medicine; Visit Provider Family Medicine
DX: R53.83 Other fatigue (principal); R10.9 Unspecified abdominal pain; M25.539 Pain in unspecified wrist
CPT/HCPCS: 36415; 80053; 84443; 85025; 85652; 86140; 86617; 86618

== ENCOUNTER → 2023-08-11 | Outpatient (CLI) | payer OTHER, SELFPAY ==
--- NOTE | 2023-08-11 10:44 | CDU_ITS ---
Reason For Study: Bilat Carotid Bruit Rt. Velocities/BP Lt. Velocities/BP Prox CCA 80.6/30.5 cm/sec. Prox CCA 86.3/38.4 cm/sec. Mid CCA 75.9/32.4 cm/sec. Mid CCA 86.3/34.8 cm/sec. Dist CCA 68.3/29.6 cm/sec. Dist CCA 70.4/26.2 cm/sec. Prox ICA 68.3/27.7 cm/sec. Prox ICA 106.5/37.1 cm/sec. Mid ICA 71.8/36.0 cm/sec. Mid ICA 65.4/31.1 cm/sec. Dist ICA 57.0/28.2 cm/sec. Dist ICA 58.1/27.4 cm/sec. Rt. ICA/CCA = 1.0. Lt. ICA/CCA = 1.2. Prox ECA 122.9/37.1 cm/sec. Prox ECA 308.1/120.6 cm/sec. Rt. Vert. 57.8/20.3 cm/sec. Lt. Vert. 45.0/16.8 cm/sec. Right Extracranial There is intimal thickening but no significant atherosclerotic plaque noted in the right common carotid artery. There is homogeneous, smooth atherosclerotic plaque noted in the right internal carotid artery. There is intimal thickening but no significant atherosclerotic plaque noted in the right external carotid artery. Antegrade flow is noted in the right vertebral artery. Left Extracranial There is intimal thickening but no significant atherosclerotic plaque noted in the left common carotid artery. There is homogeneous, smooth atherosclerotic plaque noted in the left internal carotid artery. There is heterogeneous, irregular atherosclerotic plaque noted in the left external carotid artery. Antegrade flow is noted in the left vertebral artery. Procedure Carotid Duplex [id number]. This is a Carotid Duplex examination using B-mode, color flow and specral Doppler. The exam was diagnostic. Exam performed in department. VL/Carotid Duplex Ultrasound Interpretation Summary Mild (<50%) stenosis right extracranial internal carotid. Mild (<50%) stenosis left extracranial internal carotid. Patent and antegrade vertebrals bilaterally. Ordering Physician: Dayton Gonzalez Referring Physician: Dayton Gonzalez Performed By: Kwame Graham RVT
== END | disposition home or self-care (01) ==
LOC: CVS 10:43
PROVIDERS: PCP Family Medicine; Referring Provider Psychiatry & Neurology Neurology; Visit Provider Psychiatry & Neurology Neurology
DX: R09.89 Other specified symptoms and signs involving the circulatory and respiratory systems (principal)
CPT/HCPCS: 93880

== ENCOUNTER → 2023-08-16 | Outpatient (CLI) | payer OTHER, SELFPAY ==
[2023-08-16 16:08] LABS: Anion Gap 6 (5-15); BUN 15 mg/dL (7-18); BUN/Creat Ratio 19.5 RATIO (10-20); Calcium,Total 9.1 mg/dL (8.5-10.1); Chloride 105 mmol/L (98-107); Cholesterol 229 mg/dL (200); Creatinine, Serum 0.77 mg/dL (0.55-1.02); EST Glomerular Filtration Rate 81 mL/min (>60); Est Glom Filt Rate - Afr Amer 98 mL/min (>60); Glucose 94 mg/dL (74-106); High Density Lipoprotein 47 mg/dL; Potassium 3.8 mmol/L (3.5-5.1); Sodium Level 140 mmol/L (136-145); Triglycerides 162 mg/dL; Very Low Density Lipoprotein 32 mg/dL (5-40)
== END | disposition home or self-care (01) ==
LOC: MFPLAB 13:49
PROVIDERS: PCP Family Medicine; Visit Provider Family Medicine
DX: I10 Essential (primary) hypertension (principal)
CPT/HCPCS: 36415; 80048; 80061

== ENCOUNTER 2023-08-29 20:16 | Emergency (ER) | payer OTHER, SELFPAY ==
[2023-08-29] VITALS (11 sets, daily range): BP systolic 129–130; BP diastolic 90–97; PULSE 95–134; RESP 13–28; TEMP 37.7; O2SAT 94–99; BMI 23.1
--- NOTE | 2023-08-29 20:45 | ED.VIS.DYS ---
HPI History of Present Illness Chief Complaint: Cold Sx PFSH PFSH Medical History Cerebral venous sinus thrombosis CVA (cerebral vascular accident) Hairy cell leukemia History of aphasia Lyme disease Migraine headache Non-smoker Pulmonary thromboembolism Home Medications atorvastatin 80 mg tablet 80 mg PO DAILY #30 tabs 04/19/23 [Rx Last Taken Unknown] ascorbate calcium (vitamin C) 1 tab PO DAILY 08/29/23 [History Last Taken Unknown] cholecalciferol (vitamin D3) 1 tab PO DAILY 08/29/23 [History Last Taken Unknown] losartan 100 mg-hydrochlorothiazide 25 mg tablet 1 tab PO DAILY HTN 08/29/23 [History Last Taken Unknown] multivitamin 1 tab PO DAILY 08/29/23 [History Last Taken Unknown] ondansetron 4 mg disintegrating tablet 4 mg PO Q8H PRN PRN Nausea #10 tabs 08/29/23 [Rx Last Taken Unknown] Allergy/AdvReac Type Severity Reaction Status Date / Time No Known Allergies Allergy Verified 08/29/23 20:18 Family History Mother Hypertension Surgical History No history of previous surgery Social History adopted: No household members: none number of children: 2 current occupational status: unemployed Smoking Status: Never smoker second hand exposure: No alcohol intake: never substance use type: does not use latosha/anabaptist: Pentecostal seatbelt use: sometimes do you feel safe at home: Yes additional social history: - EXAM Physical Exam Const Vital Signs: 08/29/23 20:16 08/29/23 20:47 08/29/23 20:42 Temperature 99.9 F H Temperature Source Temporal Pulse Rate 134 H 114 H Respiratory Rate 19 H 22 H Blood Pressure 129/90 H Blood Pressure Mean 103 Pulse Ox 99 94 Oxygen Delivery Method Room Air Room Air 08/29/23 20:50 08/29/23 21:00 08/29/23 21:10 Temperature Temperature Source Pulse Rate 113 H 110 H Respiratory Rate 16 14 13 Blood Pressure Blood Pressure Mean Pulse Ox 95 94 97 Oxygen Delivery Method 08/29/23 21:20 08/29/23 21:30 08/29/23 21:40 Temperature Temperature Source Pulse Rate Respiratory Rate 15 17 28 H Blood Pressure Blood Pressure Mean Pulse Ox 98 96 97 Oxygen Delivery Method Room Air 08/29/23 21:50 08/29/23 21:57 Temperature Temperature Source Pulse Rate 95 Respiratory Rate 18 13 Blood Pressure 130/97 H Blood Pressure Mean 108 Pulse Ox 95 95 Oxygen Delivery Method Room Air Room Air [facility] [place] Narrative Medical decision making narrative: HISTORY OF PRESENT ILLNESS: 61-year-old female presents with fever cough Notes history of leukemia. She states her last chemotherapy treatment was several years ago. She is not actively on chemotherapy. She states her was recently ill. She notes he had cough congestion and now she feels similar. Notes decreased appetite mild nausea but no abdominal pain chest pain or syncope. Notes slight fever and chills at home. Notes a nonproductive cough. REVIEW OF SYSTEMS: Pertinent positives: Fever, cough Pertinent negatives: Pain, syncope PHYSICAL EXAM: Nursing triage notes reviewed, Vital signs reviewed Constitutional: please see mdm HENT: MMM Eyes: Pupils equal round and reactive to light, Extraocular muscles intact Neck: No stridor, no JVD, full neck ROM Lungs: Clear to auscultation, No wheezing or rales. No increased work of breathing, no conversational dyspnea, no accessory muscle use, no nasal flaring. No respiratory distress noted Heart: Regular rate and rhythm, No murmurs, No rubs and No gallops, 2+ distal pulses (radial, femoral, posterior tibial) in all extremities Abdomen: Soft, there is no tenderness, rigidity, rebound or guarding, no obvious peritoneal signs, no palpable pulsatile abdominal masses, no auscultated abdominal bruit : No CVAT Extremities: No edema Neuro: No focal neurological deficits, cranial nerves II through XII intact, 5/5 strength in all extremities. Intact sensation to light touch in all extremities, 2+ reflexes bilateral patella tendons. Normal gait. No ataxia. Skin: No rash or lesions noted MEDICAL DECISION MAKING: Chief Complaint: Fever, cough External records reviewed: Prior oncology note reviewed:Seen by oncology in June 2023 noted remote diagnosis of his leukemia 2004 status posttreatment, bone marrow biopsy noted 2004 showed remission currently on observation Factors affecting care: CVA, leukemia, Lyme disease, PE Social determinants of health: none History obtained from others: The patient's Consults: none [facility] Narrative: Patient was initially tachycardic, tachypneic, borderline febrile otherwise hemodynamically stable. No focal lung findings on exam I considered the following differential diagnosis: COVID, flu, pneumonia I obtained a broad lab and imaging workup to further elucidate etiology of patient's complaints. I treat the patient symptomatically with Tylenol, Toradol and 1 L normal saline ALL IMAGES (IF OBTAINED) HAVE BEEN PERSONALLY REVIEWED AND INTERPRETED BY MYSELF. EKG with sinus tachycardia, normal axis, normal intervals, no STEMI or arrhythmias noted CBC no leukocytosis, no anemia or thrombocytopenia BMP with hyponatremia, hypokalemia, no anion gap, no GENO COVID-positive I have personally reviewed the patient's chest x-ray. Chest x-ray is unremarkable for pulmonary edema, pneumothorax, pneumonia or focal cardiopulmonary abnormality. The synthesis of the patient's history, physical exam, labs images suggest COVID-19 induced symptoms. Noted signs of dehydration with hyponatremia and hypokalemia. These electrolyte maladies were repleted. Borderline fever treated with Tylenol and Toradol. Patient's vital signs improved. She ambulated without hypoxia. He is appropriate discharge home. The patient and/or family, caregivers express understanding. The patient and/or family, caregivers agrees with the plan. Shared decision making: I will have a discussion with the patient and or visitors regarding risk/benefits of further testing or admission. They will be made aware of of the risk/benefits inherent in this decision they will be given the opportunity to voice understanding. Total critical care time today provided was at least 0 minutes. This excludes separately billable procedures. Critical care time (if documented) is secondary to the patient having high probability of clinically significant/life threatening deterioration in the patient's condition which required my urgent intervention. Impression: 1. COVID-19 2. Dehydration 3. Hyponatremia 4. Hypokalemia Dispo: Discharge home Lab Data Labs: Laboratory Results - last 24 hr 08/29/23 08/29/23 20:37 20:58 WBC 2.3 L RBC 3.79 L Hgb 13.1 Hct 37.9 MCV 100.0 H MCH 34.6 H MCHC 34.6 RDW Std Deviation 46.4 H RDW Coeff of Irving 12.6 Plt Count 110 L MPV 9.4 Immature Gran % (Auto) 0.400 Neut % (Auto) 66.4 Lymph % (Auto) 27.1 Harney % (Auto) 4.8 Eos % (Auto) 0.4 Baso % (Auto) 0.9 Absolute Neuts (auto) 1.5 L Absolute Lymphs (auto) 0.62 L Nucleated RBC % 0 Sodium 133 L Potassium 3.0 L Chloride 97 L Carbon Dioxide 30.0 Anion Gap 6 BUN 14 Creatinine 0.77 Estim Creat Clear Calc 73.67 Est GFR (MDRD) Af Amer 97 Est GFR (MDRD) Non-Af 80 BUN/Creatinine Ratio 18.1 Glucose 147 H Lactic Acid 1.1 Calcium 9.7 Radiography Diagnostic Testing: Clinical Impression(s) from Imaging Studies Chest X-Ray 08/29/23 20:47 IMPRESSION: No acute cardiopulmonary disease. Electronically Signed: Araceli Garcia MD at 21:09 EST Reading Location ID and State: [address] [place] [address] , Service support , Discharge Plan Triage Chief Complaint: Cold Sx ED Provider: Abram Vásquez Dx/Rx/DC Orders Clinical Impression: COVID-19 Instructions: Symptoms of COVID-19 Infection Prescriptions: New ondansetron 4 mg tablet,disintegrating 4 mg PO Q8H PRN PRN (Reason: Nausea) Qty: 10 0RF No Action atorvastatin 80 mg tablet 80 mg PO DAILY Qty: 30 6RF losartan-hydrochlorothiazide 100-25 mg tablet 1 tab PO DAILY Patient Comments: TAKE 1 TABLET BY MOUTH ONCE DAILY multivitamin [Daily Multi-Vitamin] 1 tab PO DAILY Patient Comments: 5,000 UNITS cholecalciferol (vitamin D3) 1 tab PO DAILY ascorbate calcium (vitamin C) 1 tab PO DAILY Patient Comments: 500 MG Primary Care Provider: Draiel Maya Referrals: Dariel Maya MD [Primary Care Provider] - Activity Restrictions/Additional Instructions: Thank you for trusting us with your care today! Please take Tylenol (2 pills, 650 mg), ibuprofen (2 pills, 400 mg) every 6 hours as needed for pain and fever control. Please return to the emergency department if your symptoms change or worsen. Please follow with your primary care physician for further outpatient evaluation and management. Disposition Disposition: Home, Self Care
--- NOTE | 2023-08-29 20:47 | EKG12_ITS ---
Test Reason : COLD Blood Pressure : / mmHG Vent. Rate : 111 BPM Atrial Rate : 111 BPM P-R Int : 138 ms QRS Dur : 080 ms QT Int : 318 ms P-R-T Axes : 043 030 044 degrees QTc Int : 432 ms Sinus tachycardia Otherwise normal ECG Confirmed by PROSPER HUNG, FRANKIE ([id number]), purchasing expeditor MAI BARAHONA ([id number]) on 09/07/2023 9:19:03 AM Referred By: Confirmed By:FRANKIE CHENG MD
--- NOTE | 2023-08-29 20:47 | RAD_ITS ---
STUDY: X-RAY CHEST REASON FOR EXAM: Female, 63 years old. cough TECHNIQUE: Single AP portable view of the chest. COMPARISON: 07/07/2021. FINDINGS: The lungs are clear and expanded. There is no demonstrated pleural abnormality. Normal size heart. Normal mediastinum and filippo. Normal visualized pulmonary arteries. Normal visualized aortic arch and descending thoracic aorta. There are diffuse degenerative changes of the visualized thoracic spine. Normal visualized ribs, clavicles, and shoulders. There is no demonstrated abnormality of the visualized soft tissue structures of the upper abdomen. RAD/Chest 1 View (Portable) IMPRESSION: No acute cardiopulmonary disease. Electronically Signed: Araceli Garcia MD at 21:09 RUST ,
[2023-08-29 20:57] LABS: Absolute Lymphocyte Count 0.62 X10^3/uL (0.83-4.51); Absolute Neutrophil Count 1.5 X10^3/uL (2.0-7.7); Basophil# 0.02 X10^3/uL; Basophil% 0.9 % (0-1); Eosinophil# 0.01 X10^3/uL; Eosinophils% 0.4 % (0-5); Hematocrit 37.9 % (37-47); Hemoglobin 13.1 g/dL (12.0-15.0); Lymphocyte # 0.62 X10^3/ul (0.83-4.51); Lymphocyte % 27.1 % (19-41); Mean Corp Hgb Conc 34.6 g/dL (32-36); Mean Corpuscular Hgb 34.6 pg (27.0-32.0); Mean Platelet Vol. 9.4 fl (6.2-12.0); Monocyte# 0.11 X10^3/uL; Monocyte% 4.8 % (0-10); NRBC Flagged by Analyzer 0 % (0-5); Neutrophil # 1.52 X10^3/uL (2.7-7.7); Neutrophil % 66.4 % (47-70); Platelet Count 110 K/mm3 (150-450); RBC Distribution Width CV 12.6 % (11.6-14.6); RBC Distribution Width SD 46.4 fl (35.1-43.9); Red Blood Count 3.79 M/mm3 (4.2-5.4); White Blood Count 2.3 K/mm3 (4.4-11.0)
[2023-08-29 21:12] LABS: Anion Gap 6 (5-15); BUN 14 mg/dL (7-18); BUN/Creat Ratio 18.1 RATIO (10-20); Calcium,Total 9.7 mg/dL (8.5-10.1); Chloride 97 mmol/L (98-107); Creatinine, Serum 0.77 mg/dL (0.55-1.02); EST Glomerular Filtration Rate 80 mL/min (>60); Est Glom Filt Rate - Afr Amer 97 mL/min (>60); Estimated Creatinine Clearance 73.67 ml/min; Glucose 147 mg/dL (74-106); Sodium Level 133 mmol/L (136-145)
[2023-08-29] MEDS: 0.9% Normal Saline (1000mL) 1,000 ML 999 ML IV (21:13)
[2023-08-29] MEDS: Acetaminophen 325 MG Tablet 650 MG PO (21:14)
[2023-08-29] MEDS: Ketorolac 15 MG/ML Vial IV (21:14)
[2023-08-29 21:47] LABS: Lactic Acid 1.1 mmol/L (0.4-1.9)
[2023-08-29] MEDS: Potassium Chloride Oral Tablet 20 MEQ 40 MEQ PO (21:55)
[2023-08-29] MEDS: Ondansetron 4 MG/2 ML Vial IV (21:55)
== END 2023-08-29 22:41 | disposition home or self-care (01) ==
PROVIDERS: Emergency Provider Emergency Medicine; PCP Family Medicine; Visit Provider Emergency Medicine
DX: U07.1 COVID-19 (principal); C91.41 Hairy cell leukemia, in remission; E86.0 Dehydration; E87.6 Hypokalemia; E87.1 Hypo-osmolality and hyponatremia; I10 Essential (primary) hypertension; Z79.899 Other long term (current) drug therapy; Z86.73 Personal history of transient ischemic attack (TIA), and cerebral infarction without residual deficits
CPT/HCPCS: 71045; 80048; 83605; 85025; 87428; 93005; 96361; 96374; 96375; 99284; J7030; A4216; J2405

== ENCOUNTER → 2023-10-14 | Outpatient (CLI) | payer OTHER, SELFPAY ==
[2023-10-14 17:58] LABS: Magnesium 2.4 mg/dL (1.6-2.6); Potassium 3.6 mmol/L (3.5-5.1)
== END | disposition home or self-care (01) ==
LOC: MFPLAB 14:17
PROVIDERS: PCP Psychiatry & Neurology Neurology; Visit Provider Psychiatry & Neurology Neurology
DX: E87.6 Hypokalemia (principal)
CPT/HCPCS: 36415; 83735; 84132

== ENCOUNTER → 2024-03-06 | Outpatient (CLI) | payer OTHER, SELFPAY ==
[2024-03-06 18:28] LABS: ALB/GLOB Ratio 1.2 RATIO (0.9-2.4); AST(SGOT) 23 U/L (15-37); Alanine Aminotransfer ALT/SGPT 35 U/L (13-56); Alkaline Phosphatase 109 U/L (45-117); Anion Gap 4 (5-15); BUN 16 mg/dL (7-18); BUN/Creat Ratio 20.8 RATIO (10-20); Calcium,Total 9.7 mg/dL (8.5-10.1); Chloride 103 mmol/L (98-107); Cholesterol 245 mg/dL (200); Creatinine, Serum 0.77 mg/dL (0.55-1.02); EST Glomerular Filtration Rate 81 mL/min (>60); Est Glom Filt Rate - Afr Amer 98 mL/min (>60); Globulin 3.4 g/dL (2.2-4.2); Glucose 91 mg/dL (74-106); High Density Lipoprotein 46 mg/dL; Potassium 3.6 mmol/L (3.5-5.1); Protein, Total 7.4 g/dL (6.4-8.2); Sodium Level 138 mmol/L (136-145); Triglycerides 190 mg/dL; Very Low Density Lipoprotein 38 mg/dL (5-40)
== END | disposition home or self-care (01) ==
LOC: MFPLAB 13:56
PROVIDERS: PCP Psychiatry & Neurology Neurology; Visit Provider Family Medicine
DX: I10 Essential (primary) hypertension (principal)
CPT/HCPCS: 36415; 80053; 80061

== ENCOUNTER → 2024-08-15 | Outpatient (CLI) | payer OTHER, SELFPAY ==
--- NOTE | 2024-08-15 12:41 | US_ITS ---
STUDY: ULTRASOUND OF THE FEMALE PELVIS - COMPLETE REASON FOR EXAM: Female, 64 years old. Postcoital bleed LMP: Patient is postmenopausal. TECHNIQUE: Transabdominal and Transvaginal TECHNICAL QUALITY: Adequate. COMPARISON: Comparison is made with prior study dated April 01, 2023. FINDINGS: The uterus is retroverted and is in a midline position. The uterus measures 6.8 cm x 4.8 cm x 3.7 cm. Normal uterine cervix. The endometrium is thickened and measures 4.1 mm in thickness, and is hyperechoic. There is no demonstrated endometrial mass. There are 2 small uterine fibroids. The larger measures 1 cm x 1 cm x 0.8 I.U.D. - The patient does not have an I.U.D. The right ovary is visualized. The right ovary measures 1.8 cm x 1.4 cm x 0.9 cm. There is no right ovarian cyst or ovarian mass. There is no visualized right adnexal mass or complex lesion. There is normal arterial and normal venous vascularity. The left ovary is visualized. The left ovary measures 2.2 cm x 1.1 cm x 1.4 cm. There is no left ovarian cyst or ovarian mass. There is no visualized left adnexal mass or complex lesion. There is normal arterial and normal venous vascularity. There is no fluid in the cul-de-sac. US/Pelvic w/ Transvaginal IMPRESSION: Mild thickening of the endometrium for the patient''s age. There are 2 small uterine fibroids. Electronically Signed: Keshav Toro MD at 13:12 EST ,
== END | disposition home or self-care (01) ==
LOC: US 12:39
PROVIDERS: PCP Family Medicine; Referring Provider Nurse Practitioner Women's Health; Visit Provider Nurse Practitioner Women's Health
DX: N95.0 Postmenopausal bleeding (principal)
CPT/HCPCS: 76830; 76856